=== PATIENT | female | born 1945 | race Caucasian/White ===

== ENCOUNTER 2022-10-09 13:23 | Emergency (ER) | payer MEDICARE, MEDICAID, SELFPAY ==
--- NOTE | ~2022-10-09 | XR_ITS ---
EXAMINATION: XR KNEE, RIGHT CLINICAL INFORMATION: Right knee pain COMPARISON: None available. TECHNIQUE: Four views of the right knee. FINDINGS: There is moderate suprapatellar joint effusion with mild loss of medial tricompartment joint space. There is minimal superior patellar spurring. No acute fracture, dislocation or loose body seen. The soft tissues are normal. XR/XR knee RT 4V IMPRESSION: Mild degenerative changes medial and patellofemoral compartment with moderate joint effusion. No visible acute fracture or dislocation seen.
--- NOTE | ~2022-10-09 | US_ITS ---
EXAMINATION: US VENOUS ULTRASOUND WITH DOPPLER LOWER EXTREMITY, RIGHT CLINICAL INFORMATION: Right calf pain COMPARISON: None available. TECHNIQUE: Ultrasound of the deep veins is performed from the hip to the calf with compression sonography and color and pulse Doppler assessment. Spectral analysis with color-flow imaging is performed. FINDINGS: There is normal venous compression and respiratory variation and augmented flow. The visualized common femoral vein, superficial femoral vein, profunda femoral vein, popliteal vein, and the trifurcation region shows no evidence of deep venous thrombosis. There is no significant popliteal fossa cyst. Small knee joint effusion. US/US venous duplex LE RT IMPRESSION: No DVT demonstrated in the right lower extremity.
--- NOTE | 2022-10-09 13:24 | ED.GENADULT ---
HPI - General Adult General Chief complaint: Extremity Injury, Lower Stated complaint: R knee swelling Time Seen by Provider: 10/09/22 16:41 History of Present Illness HPI narrative: patient complains of right knee pain and swelling which has been going on for close to a month making it painful especially in the morning , she has been walking with a limp, no injury no fever, she also complains of pain in back of the leg and the lower thigh and upper calf but denies any redness or injury, no fevers There is no chest pain no shortness of breath no pain with deep breath Related Data Previous Rx's Medication Instructions Recorded oxycodone 5 mg tablet 5 mg PO Q6H PRN pain #14 tabs 10/09/22 walker #1 ea 10/09/22 Allergies Allergy/AdvReac Type Severity Reaction Status Date / Time acetaminophen [Percocet] Allergy Unknown hives Verified 03/09/19 00:00 oxycodone [Percocet] Allergy Unknown hives Verified 03/09/19 00:00 No Known Allergies Allergy Unverified 01/27/20 15:18 [facility] Past Medical History Source: nursing notes reviewed Social History Social History Alcohol intake: never Physical Exam ED Vital Signs: Vital Signs - 24 hr 10/09/22 13:26 Temperature 98 F Pulse Rate 77 Respiratory Rate 19 Blood Pressure 186/74 H Pulse Oximetry 98 Oxygen Delivery Method Room Air BMI result Body Mass Index 28.6 General appearance is no acute distress no respiratory distress Head is normocephalic atraumatic Neck is supple Chest is clear to auscultation bilateral full symmetric equal breath sounds no pleuritic pain with deep breath Heart no murmur Abdomen soft nontender Extremities the right knee had tenderness and mild swelling as well as some tenderness of the calf posterior thigh and posterior knee, there was no redness no rash no warmth, there was no obvious effusion, the leg extends to 180 degrees and flexes close to 90, patient can bear weight and walks with a limp Other extremities normal Skin no rash Course Course Course Narrative: This is an RME: Additional HPI, ROS, PE not included below will be deferred to primary provider. This is a [id number]-female, with a past medical history of diabetes, fibromyalgia, hyperlipidemia, and asthma, presenting to the emergency department with complaints of right knee pain and swelling x 2 weeks. Patient was seen at [facility] where she was told she has arthritis and a wen's cyst. Has been taking ibuprofen without any relief. Does not have f/u with orthopedics, next PCP appt not until next week. No fevers or chills. No recent trauma, injury. Patient has limited range of motion no or edema Plan: x-ray showed of an effusion and arthritis, ultrasound was negative for DVT, exam the patient did not show any signs of septic arthritis in the joint, extends to 180 flexes close to 90 no redness no warmth no fever, and patient was discharged to follow with orthopedics for osteoarthritis Medications Administered Discontinued Medications Generic Name Dose Route Start Last Admin Trade Name Freq PRN Reason Stop Dose Admin Oxycodone HCl 5 mg 10/09/22 17:00 10/09/22 17:18 Oxycodone Hcl Immed Release 5 Mg Tablet PO 10/09/22 17:01 5 mg ONCE ONE Administration Discharge Plan Discharge Clinical Impression: Osteoarthritis of right knee Patient Disposition: Home, Self-Care Additional Instructions: x-ray showed arthritis in the joint and you may benefit from a steroid shot from the orthopedist so follow with orthopedist There is no sign of any infection Ultrasound did not show any blood clot Return any time if worse Prescriptions: New oxycodone 5 mg tablet 5 mg PO Q6H PRN (Reason: pain) Qty: 14 0RF Rx Instructions: Partial Fill upon patient request. (DME) joce Francis See Rx Instructions .Route Qty: 1 0RF Rx Instructions: As directed Referrals: Tremaine Rodriguez MD [Physician] - ( right knee osteoarthritis and effusion) Interventions: ED Discharge Assessment Last Done: 10/09/22 17:37 Discharge Date/Time: 10/09/22 17:42
[2022-10-09 13:26] VITALS: BP 186/74; PULSE 77; RESP 19; TEMP 36.6; O2SAT 98; BMI 28.6
--- OUTSIDE RECORDS SUMMARY | 2022-10-09 16:51 | XMS_ITS | Continuity of Care Document ---
Author Name Unknown Organization [facility] Address [address] [place] [address]- Care Team Providers Care Fuel Manager Name Role Phone Candis WALKER, Remi Sebastian Primary Care Physician [phone] [id number] Date(s): 09/26/20 - 12/09/[address] [address] Attending Physician: Jose Elias Rodriguez MD Admitting Physician: Jose Elias Rodriguez MD Allergies, Adverse Reactions, Alerts Substance Reaction Severity Status Zocor Active Lipitor Active gadolinium containing compounds Active Immunizations Not Given Vaccine Date Status Refusal Reason pneumococcal 13-valent vaccine 02/27/16 Not Given Patient Refuses Medications aspirin 81 mg oral tablet 1 tablet = 81 mg, By Mouth, Daily, # 30 tablet, 0 Refills, Maintenance, 02/27/16 11:50:51, Tablet Start Date: 02/27/16 Status: Ordered Citrucel 500 mg oral tablet 2 tablet = 1,000 mg, By Mouth, Daily, # 100 tablet, 1 Refills, Maintenance, 03/14/16 17:01:42 Start Date: 03/14/16 Status: Ordered Pepcid AC Maximum Strength 20 mg oral tablet 20 mg, 1, tablet, By Mouth, 2 times a day, # 60 tablet, Refills 0, Tot. Refills 0, Maintenance, 02/27/16 11:51:46, Print Requisition Start Date: 02/27/16 Stop Date: 03/28/16 Status: Ordered ProAir HFA 90 mcg/inh inhalation aerosol with adapter 180 mcg, 2, puffs, Inhalation, 4 times a day, # 2 each, Refills 0, Tot. Refills 0, Maintenance, 02/27/16 11:51:29, Inhaler, Print Requisition Start Date: 02/27/16 Status: Ordered Problem List Condition Effective Dates Status Health Status Inform ant Depression(Confirmed) Active Diabetes mellitus - adult onset(Confirmed) Active Diarrhea(Confirmed) Active Gastroenteritis(Confirmed) Active VV (varicose veins)(Confirmed) Active Social History Social History Type Response Smoking Status Never smoker entered on: 04/13/14 Sex
--- OUTSIDE RECORDS SUMMARY | 2022-10-09 16:51 | XMS_ITS | Continuity of Care Document ---
Author Name Unknown Organization [facility] Address [address] [place] [address]- Care Team Providers Care Devulcanizer Head Name Role Phone Candis WALKER, Remi Sebastian Primary Care Physician [phone] Encounter [facility] ACCT R [id number] Date(s): 12/13/20 - 01/12/21 [facility] [address] [place] [address]- Attending Physician: Ghazal Sexton Admitting Physician: Ghazal Sexton Referring Physician: AdmtrGhazal Allergies, Adverse Reactions, Alerts Substance Reaction Severity [...]
--- OUTSIDE RECORDS SUMMARY | 2022-10-09 16:51 | XMS_ITS | Continuity of Care Document ---
Author Name Unknown Organization [facility] [place] Address [address] [place] [address]- Care Team Providers Care Associate Team Physician Name Role Phone Candis WALKER, Remi Sebastian Primary Care Physician [phone] Encounter [facility] Date(s): 09/25/20 - 10/25/20 [facility] [place] [address] [place], [place] [address] Allergies, Adverse Reactions, Alerts Substance Reaction Severity [...]
--- OUTSIDE RECORDS SUMMARY | 2022-10-09 16:51 | XMS_ITS | Continuity of Care Document ---
Author Name Unknown Organization [facility] [place] Address [address] [place] [address]- Care Team Providers Care Glass Glazier Name Role Phone Remi Chirinos MD Primary Care Physician [phone] Encounter [facility] NBR [id number] Date(s): 09/25/20 - 10/25/20 [facility] [place] [address] [place], [place] [address] Attending Physician: Ghazal Sexton Admitting Physician: Ghazal Sexton Referring Physician: Ghazal Sexton Allergies, Adverse Reactions, Alerts Substance Reaction Severity [...]
--- OUTSIDE RECORDS SUMMARY | 2022-10-09 16:51 | XMS_ITS | Continuity of Care Document ---
Author Name Unknown Organization [facility] [place] Address [address] [place] [address]- Care Team Providers Care Rehabilitation Counselor Name Role Phone Remi Chirinos MD Primary Care Physician Encounter [email or web address] NBR [id number] Date(s): 05/25/20 - 09/13/20 [facility] [place] [address] [place], [place] [address] Attending Physician: Jose Elias Rodriguez MD Referring Physician: Remi Chirinos MD Allergies, Adverse Reactions, Alerts Substance Reaction [...]
--- OUTSIDE RECORDS SUMMARY | 2022-10-09 16:51 | XMS_ITS | Continuity of Care Document ---
Author Name Unknown Organization [facility] Address [address] [place] [address]- Care Team Providers Care Salesperson Household Appliances Name Role Phone Candis WALKER, Remi Sebastian Primary Care Physician [id number] Date(s): 12/31/21 - 01/30/22 [facility] [address] [place] [address] [place] Allergies, Adverse Reactions, Alerts Substance Reaction Severity Status Zocor Active Lipitor Active gadolinium containing compounds Active Immunizations Not Given Vaccine Date Status Refusal Reason pneumococcal 13-valent vaccine 02/27/16 Not Given Patient Refuses Medications Actos 15 mg oral tablet 1 tablet = 15 mg, By Mouth, Daily, 0 Refills, Maintenance, 09/25/20 13:20:00 EDT, Partial fill uponpatient request if the prescription is for a schedule II opioid drug. Start Date: 09/25/20 Status: Ordered aspirin 81 mg oral tablet 1 tablet = 81 mg, By Mouth, Daily, # 30 tablet, 0 Refills, Maintenance, 02/27/16 11:50:51, Tablet Start Date: 02/27/16 Status: Ordered bisacodyl 5 mg oral delayed release tablet 1 tablet = 5 mg, By Mouth, Daily, PRN for constipation, Take 2 tabs the evening before colonoscopy,# 12 tablet, 0 Refills, Maintenance, 01/07/22 17:04:00 EDT, EC Tablet, [facility]/pharmacy #[id number], Partial fill upon patient request if the prescription is for... Start Date: 01/07/22 Status: Ordered Citrucel 500 mg oral tablet 2 tablet = 1,000 mg, By Mouth, Daily, # 100 tablet, 1 Refills, Maintenance, 03/14/16 17:01:42 Start Date: 03/14/16 Status: Ordered GaviLyte-G oral powder for reconstitution 240 mL, By Mouth, Daily, # 480 mL, 0 Refills, Maintenance, 09/25/20 16:20:00 EDT, REC Powder, [facility], Partial fill upon patient request if the prescription is for a schedule II opioid drug., 240 mL By Mouth Daily Start Date: 09/25/20 Status: Ordered glipiZIDE 5 mg oral tablet 5 mg, 1, tablet, By Mouth, Daily, Refills 0, Maintenance, 09/25/20 13:20:00 EDT, Partial fill upon patient request if the prescription is for a schedule II opioid drug. Start Date: 09/25/20 Status: Ordered MiraLax oral powder for reconstitution = 17 Gm, By Mouth, 2 times a day, take twice daily for ONE WEEK before COLONOSCOPY, # 238 Gm, 0 Refills, Maintenance, 01/07/22 17:04:00 EDT, REC Powder, [facility]/pharmacy #[id number], Partial fill upon patient request if the prescription is for a schedule II opi... Start Date: 01/07/22 Status: Ordered NuLYTELY with Flavor Packs oral powder for reconstitution 240 mL, By Mouth, Every 10 minutes, # 4,000 mL, 0 Refills, Maintenance, 01/07/22 17:03:00 EDT, REC Powder, [facility]/pharmacy #[id number], Partial fill upon patient request if the prescription is for a schedule II opioid drug., 240 mL By Mouth Every 10 minutes Start Date: 01/07/22 Status: Ordered Pepcid AC Maximum Strength 20 mg oral tablet 20 mg, 1, tablet, By Mouth, 2 times a day, # 60 tablet, Refills 0, Tot. Refills 0, Maintenance, 02/27/16 11:51:46, Print Requisition Start Date: 02/27/16 Stop Date: 03/28/16 Status: Ordered Precose 100 mg oral tablet 1 tablet = 100 mg, By Mouth, 3 times a day, 0 Refills, Maintenance, 09/25/20 13:20:00 EDT, Partial fill upon patient request if the prescription is for a schedule II opioid drug. Start Date: 09/25/20 Status: Ordered ProAir HFA 90 mcg/inh inhalation [...] Status Never smoker entered on: 04/13/14 Sex Care Team Personnel Name: Candis WALKER, Remi Sebastian Address: [address] [place] [address] [facility] [address]
--- OUTSIDE RECORDS SUMMARY | 2022-10-09 16:51 | XMS_ITS | Continuity of Care Document ---
Author Name Unknown Organization [facility] Address [address] [place] [address]- Care Team Providers Care Dance Critic Name Role Phone Remi Chirinos MD Primary Care Physician [id number]20/[facility] [address] [place] [address]- Attending Physician: Laura Wylie MD Referring Physician: Remi Chirinos MD Allergies, [...]
--- OUTSIDE RECORDS SUMMARY | 2022-10-09 16:51 | XMS_ITS | Continuity of Care Document ---
Author Name Unknown Organization [facility] [place] Address [address] [place] [address]- Care Team Providers Care Payment Specialist Name Role Phone Candis WALKER, Remi Sebastian Primary Care Physician [phone] Encounter [facility] NBR [id number] Date(s): 06/01/20 - 09/29/20 [facility] [place] [address] [place], [place] [address] Attending Physician: Jose Elias Rodriguez MD Allergies, Adverse [...]
--- OUTSIDE RECORDS SUMMARY | 2022-10-09 16:51 | XMS_ITS | Continuity of Care Document ---
Author Name Unknown Organization [facility] Address [address] [place] [address]- Care Team Providers Care Furniture Stainer Name Role Phone Candis WALKER, Remi Sebastian Primary Care Physician [phone] Encounter [facility] Date(s): 08/14/21 - 09/13/21 [facility] [address] [place] [address] [place] Allergies, Adverse Reactions, Alerts Substance Reaction [...]
[2022-10-09] MEDS: oxyCODONE HCl Immed Release 5 MG TABLET PO (17:18)
[2022-10-09 17:35] VITALS: BP 177/88; PULSE 72; RESP 18; O2SAT 97
== END 2022-10-09 17:42 | disposition home or self-care (01) ==
PROVIDERS: Emergency Provider Emergency Medicine; PCP Internal Medicine
DX: M17.11 Unilateral primary osteoarthritis, right knee (principal); M79.604 Pain in right leg; E11.9 Type 2 diabetes mellitus without complications; E78.5 Hyperlipidemia, unspecified
CPT/HCPCS: 73564; 93971; 99284

== ENCOUNTER → 2022-10-21 11:51 | Outpatient (BNVA) | payer MEDICARE, MEDICAID, SELFPAY | PROVIDERS: PCP Internal Medicine; Visit Provider Orthopaedic Surgery | DX: M17.11 Unilateral primary osteoarthritis, right knee (principal); E11.9 Type 2 diabetes mellitus without complications | CPT/HCPCS: 20610; 99202; J1100 ==

== ENCOUNTER 2022-12-16 10:32 | Outpatient (AMB) | payer MEDICARE, MEDICAID, SELFPAY ==
--- NOTE | 2022-12-16 10:34 | A.OFFVIS_ITS ---
Intake Vital Signs 12/16/22 10:35 Height 5 ft 5 in Weight 175 lb BMI 29.1 Intake Visit Reasons: ov- Osteoarthritis of right knee Intake Note: Karla is a 77 year old female who presents today for a follow up of her right knee OA. Last Injection done 10/21/22. Patient reports that she founf mild relief with the injection but would like to repeat. Allergies acetaminophen [Percocet] Allergy (Unknown, Verified 10/21/22 11:56) hives oxycodone [Percocet] Allergy (Unknown, Verified 10/21/22 11:56) hives No Known Allergies Allergy (Unverified 10/21/22 11:56) HPI ov- Osteoarthritis of right knee HPI Details Karla is a 77 year old Diabetic woman who returns to discuss her right knee OA pain. She was last seen, and injected, on 10/21/22, with mild relief. She continues to have pain with daily activity, worse with walking or using stairs. She describes her pain as sharp in the medial aspect of her knee. She denies any prior treatment, and currently takes NSAIDs for pain relief. She has a Hx of Fibromyalgia and is a Diabetic.? [facility] Social History Alcohol intake: never Review of Systems Const All systems reviewed & are unremarkable except as noted in HPI and below Physical Exam Vital Signs: BMI result Body Mass Index 29.1 Const General: no acute distress and alert Orientation/consciousness: patient oriented x3 Neuro General: patient oriented x3 Extrem Other: Right Knee: TTP medial joint line No effusion 0-120 degrees ROM Stable to V/V stress Psych Appearance: grossly normal Affect: normal affect Attitude: cooperative Office Procedures Joint Injection/Drain Joint Injection/Drain Details: Injected 1 mL of Decadron and 3 mL 1% lidocaine and 3 mL of 0.25% Marcaine. Site was prepped using aseptic technique. Patient tolerated the procedure well. Primary Site: right knee Approach Used: anterolateral Coding 60303 - Large joint Procedure code (CPT) selection complete Results Reviewed Results Reviewed: 12/16/22 10:35 BUPivacaine MPF 0.25 % [Sensorcaine-MPF 0.25% 10 ML] 10 ml .ROUTE .STK-MED ONE Lidocaine HCl 2 % MPF [Xylocaine 2 % MPF] 5 ml .ROUTE .STK-MED ONE dexAMETHasone sod phosphate [Decadron] 4 mg .ROUTE .STK-MED ONE I personally reviewed relevant radiographs. Mild degenerative changes medial and patellofemoral compartment with moderate joint effusion. No visible acute fracture or dislocation seen. Assessment & Plan Assessment & Plan (1) Osteoarthritis of right knee: Code(s): M17.11 - Unilateral primary osteoarthritis, right knee Plan: This is a 77 year old woman with right knee OA. She has pain with daily activity, worse with prolonged ambulation, and she ambulates with antalgia. She feels limited in her ambulatory capacity and her ADLs. She denies any prior treatment and takes NSAIDs. She found mild relief from her injection on 10/21/22. I discussed her diagnosis and treatment options. I injected her right knee today, which she tolerated well. She can follow up prn. (2) Diabetes mellitus: Code(s): E11.9 - Type 2 diabetes mellitus without complications Plan: I discussed the hyperglycemic effects of steroid injections. Plan Scribed for Tremaine Rodriguez MD by Bravo Oh, medical management trainer, on 12/16/22 at 10:50 AM, EST. Coding Level of Care Code Est Pt Level 4 (07208) Diagnoses Osteoarthritis of right knee M17.11 Diabetes mellitus E11.9 CPT Codes Coding - 11240 Large joint: 12876 - Large joint ([id number])
[2022-12-16 10:35] VITALS: BMI 29.1
== END 2022-12-16 12:36 | disposition home or self-care (01) ==
PROVIDERS: PCP Internal Medicine; Visit Provider Orthopaedic Surgery
DX: M17.11 Unilateral primary osteoarthritis, right knee (principal)
CPT/HCPCS: 20610; 99214

== ENCOUNTER → 2022-12-16 10:32 | Outpatient (BNVA) | payer MEDICARE, MEDICAID, SELFPAY | PROVIDERS: PCP Internal Medicine; Visit Provider Orthopaedic Surgery | DX: M17.11 Unilateral primary osteoarthritis, right knee (principal); E11.9 Type 2 diabetes mellitus without complications | CPT/HCPCS: 20610; 99212; J1100 ==

== ENCOUNTER 2023-07-11 11:47 | Emergency (ER) | payer MEDICARE, MEDICAID, SELFPAY ==
--- NOTE | ~2023-07-11 | XR_ITS ---
EXAMINATION: XR CHEST CLINICAL INFORMATION: Shortness of breath COMPARISON: 06/26/2019 TECHNIQUE: 2 views of the chest were obtained. FINDINGS: No significant abnormality is noted involving the heart, lungs, mediastinum, bony thorax or soft tissues. XR/XR chest 2V IMPRESSION: Unremarkable examination.
[2023-07-11 12:07] VITALS: BP 167/68; PULSE 96; RESP 18; TEMP 36.5; O2SAT 95; BMI 28.7
--- NOTE | 2023-07-11 12:14 | ED_ITS ---
HPI - General Adult General Chief complaint: Upper Respiratory Symptoms Stated complaint: asthma Time Seen by Provider: 07/11/23 13:09 Source: patient Mode of arrival: ambulatory Limitations: no limitations History of Present Illness HPI narrative: Patient is a 78 year old female with a history of asthma, DM, and OA of both knees, presenting to the ED with a 3 month history of coughing, wheezing, and SOB. The symptoms have been progressively getting worse and have been causing pounding headaches, likely secondary to coughing, and that it has lead to difficulty sleeping. Patient endorses a history of asthma and reports being on a regimen to manage her symptoms, but her prescription was discontinued by her PCP sometime last year. Patient denies fever, chills, chest pain, and edematous changes in her lower extremities. Onset (ago): week(s) (3) Radiation: non-radiation Severity: mild Severity scale (1-10): 3 Pain Consistency: intermittent Relieving factors: none Exacerbating factors: none Associated symptoms: denies other symptoms, cough and shortness of breath Treatments prior to arrival: none Related Data Home Medications Medication Instructions Recorded Confirmed aspirin 81 mg tablet,delayed 81 mg PO DAILY 10/21/22 release (Adult Aspirin Regimen) cetirizine 10 mg tablet (Allergy 10 mg PO DAILY PRN 10/21/22 Relief (cetirizine)) dulaglutide 1.5 mg/0.5 mL 1.5 mg subcut QWEEK 10/21/22 subcutaneous pen injector (Trulicity) famotidine 20 mg tablet 20 mg PO DAILY 10/21/22 fluticasone 500 mcg-salmeterol 50 1 inh inhalation BID 10/21/22 mcg/dose blistr powdr for inhalation (Advair Diskus) glipizide 5 mg tablet 5 mg PO DAILY 10/21/22 montelukast 10 mg tablet 10 mg PO DAILY 10/21/22 rosuvastatin 10 mg tablet 10 mg PO DAILY 10/21/22 Previous Rx's Medication Instructions Recorded oxycodone 5 mg tablet 5 mg PO Q6H PRN pain #14 tabs 10/09/22 walker #1 ea 10/09/22 albuterol sulfate 90 mcg/actuation 1 inh inhalation QID PRN 07/11/23 aerosol inhaler bronchospasm #8.5 grams prednisone 20 mg tablet 20 mg PO DAILY 7 days #7 tabs 07/11/23 Allergies Allergy/AdvReac Type Severity Reaction Status Date / Time No Known Allergies Allergy Verified 07/11/23 12:15 Review of Systems Constitutional: Constitutional: Reports no additional constitutional complaints, Denies chills, Reports difficulty sleeping, Denies fever(s), Reports headache(s) and Denies night sweats Eyes: Eyes: Reports no additional eye complaints, Denies blurry vision, Denies change in vision, Denies diplopia, Denies eye discharge, Denies loss of vision and Denies eye pain ENT: Denies dizziness and Reports headache(s) Cardiovascular: Cardiovascular: Reports no additional cardiovascular complaints, Denies chest pain, Denies pedal edema, Denies leg edema, Denies lightheadedness, Denies Loss of Consciousness, Reports dyspnea and Reports dyspnea on exertion Respiratory: Respiratory: Reports cough, Reports dyspnea, Reports dyspnea on exertion and Reports wheezing Gastrointestinal: Gastrointestinal: Reports no additional gastrointestinal complaints, Denies abdominal pain, Denies melena, Denies hematochezia, Denies change in bowel habits and Denies change in stool character Genitourinary: Genitourinary: Denies hematuria, Denies urinary frequency, Denies dysuria, Denies urinary incontinence, Denies urinary hesitancy and Denies urinary urgency Musculoskeletal: Musculoskeletal: Reports no additional musculoskeletal complaints, Denies numbness and Denies tingling Neurologic: Denies dizziness, Reports headache(s), Denies loss of vision, Denies numbness and Denies tingling Psychiatric: Psychiatric: Reports no additional psychiatric complaints Endocrine: Endocrine: Reports no additional endocrine complaints Hematologic/Lymphatic: Hematologic/Lymphatic: Reports no additional hematologic/lymphatic complaints Allergic/Immunologic: Allergic/Immunologic: Reports no additional allergic/immunologic complaints and Reports wheezing PMFSH Past Medical History Attestation statement: The following information was validated with the patient. Source: old records reviewed and nursing notes reviewed Social History Social History Alcohol intake: never Smoked in Last 30 Days: No Use of substances other than those prescribed or required for medical reasons: No Advance Directives: No Advance Directives Information Provided: Yes Physical Exam ED Vital Signs: Vital Signs - 24 hr 07/11/23 12:07 07/11/23 13:12 07/11/23 13:38 Temperature 97.7 F 99.5 F Pulse Rate 96 88 Respiratory Rate 18 16 Blood Pressure 167/68 H 179/64 H Pulse Oximetry 95 98 98 Oxygen Delivery Method Room Air Room Air Room Air BMI result Body Mass Index 28.7 Const General: cooperative, alert, awake and anxious Nutritional Appearance: average body habitus Orientation/consciousness: patient oriented x3 Limitations: no limitations HENMT Head: Yes normal to inspection Ears: hearing grossly normal bilaterally General nose exam: Normal external nose present Face and sinus: Yes normal facial exam Mouth: Normal oral and palatal mucosa present Throat: Yes posterior oropharynx normal Eyes General: appearance normal, both eyes and all related structures Periorbital: periorbital findings normal Eyelids: Yes eyelids normal Conjunctivae: conjunctivae normal Pupils: Equal, round and reactive pupils present EOM: EOMs intact bilaterally Neck Neck: Yes normal visual inspection, Yes full ROM and Yes no lymphadenopathy Chest Chest palpation & inspection: normal inspection of the chest Resp Effort & Inspection: normal respiratory effort, audible wheezes and Actively coughing Auscultation: wheezes expiratory wheezes and upper bilaterally Cardio Jugular venous distension: no JVD Palpation: normal PMI Rate: regular rate Rhythm: regular rhythm GI Inspection: Yes normal to inspection Neuro General: patient oriented x3 Cranial nerves: Yes Equal, round and reactive pupils present Cognition (Neuro): normal cognition Motor exam (neuro): 5/5 motor strength present throughout Sensory Exam: Normal double simultaneous stimulation for sensation Coordination: [id number] test normal Extrem General: Yes normal to inspection, Yes full ROM and Yes capillary refill normal Psych Appearance: grossly normal Mental Status: mental status grossly normal Affect: normal affect Attitude: cooperative Thought process: Normal thought process present Thought content: Normal thought content present Insight: Good insight present (Psych) Course Course Course Narrative: RME- 78-year-old female presents for evaluation of cough for 3 weeks. She reports that her primary doctor stopped her abdomen medications because ?they think I have an allergy. ? She reports that she has not been her inhalers for at least 6 months. Plan for x-ray and viral swabs. She is well-appearing Medications Administered Discontinued Medications Generic Name Dose Route Start Last Admin Trade Name Freq PRN Reason Stop Dose Admin Methylprednisolone Sodium Succinate 60 mg 07/11/23 13:10 07/11/23 13:35 Methylprednisolone Sod Succ 125 Mg/2 Ml Vial IM 07/11/23 13:11 60 mg ONCE ONE Administration Medical Decision Making Medical Decision Making [facility] Narrative: Patient is a 78 year old assigned female at with a history of asthma and DM presenting to the emergency department today with a persistent cough. Patient's physical exam was as noted in the physical exam portion of this note. Patient's chest x-ray showed no acute process. Patient's COVID-19, influenza, and RSV tests were negative. I explained my physical exam findings as well as all test results to the patient. I answered all questions asked by the patient. Patient received IM Solu-medrol and a breathing treatment which she stated helped her symptoms significantly. I stressed the importance of the patient taking her medication as prescribed. I stressed the importance of the patient following up with her primary care provider. I stressed the importance of the patient returning to the emergency department immediately if her symptoms were to worsen or if she were to develop any dizziness, shortness of breath, difficulty breathing, chest pain, blurry vision, loss of vision, nausea, vomiting, abdominal pain, fever, chills, back pain, or any other complaints. Krystle garcia verbalized agreement and understanding with this treatment plan and discharge. Differential Diagnosis Differential Diagnoses: The differential diagnosis associated with the presentation includes Cough Persistent cough Viral illness Asthma Asthma exacerbation Admission/Observation Consideration of admission/observation: Escalation of care including admission/observation considered Patient would have been admitted to the hospital had her work up had any findings where hospital admission was appropriate and her clinical presentation warranted hospital admission. Lab Data [facility] Lab Attestation statement: I reviewed the patient's lab results. My interpretation of these results are in the [facility] Rationale portion of this note. Labs: Lab Results 07/11/23 Range/Units 12:17 Influenza Type A (PCR) NEGATIVE (Negative) Influenza Type B (PCR) NEGATIVE (Negative) RSV RNA Qual (PCR) NEGATIVE (Negative) SARS-CoV-2 RNA (RT-PCR) NEGATIVE (Negative) Independent Interpretation I performed an independent interpretation of an: Plain X-Ray Interpretation: My interpretation is in agreement with the radiologist's impression of this imaging study. EXAMINATION: XR CHEST CLINICAL INFORMATION: Shortness of breath COMPARISON: 06/26/2019 TECHNIQUE: 2 views of the chest were obtained. FINDINGS: No significant abnormality is noted involving the heart, lungs, mediastinum, bony thorax or soft tissues. XR/XR chest 2V IMPRESSION: Unremarkable examination. Dictated By: Val Stuart MD Signed By: Electronically signed by Val Stuart MD 07/11/23 7417 Radiology Impression Discussion of test interpretation with radiology: I have reviewed the radiologist's reading. Critical Care Time Critical Care Time Critical Care Time: Yes Total Critical Care Time: 45 Attestation: I spent 45 minutes of Critical Care Time with this patient. This does not include time spent on separately reported billable procedures. Discharge Plan Discharge Clinical Impression: Asthma Patient Disposition: Home, Self-Care Instructions: Asthma (DC) Additional Instructions: Follow up with your primary care provider. Return to the emergency department immediately if your symptoms worsen or if you develop any dizziness, shortness of breath, difficulty breathing, chest pain, blurry vision, loss of vision, nausea, vomiting, abdominal pain, fever, chills, back pain, or any other complaints. Prescriptions: New albuterol sulfate 90 mcg/actuation HFA aerosol inhaler 1 inh inhalation QID PRN (Reason: bronchospasm) Qty: 8.5 0RF prednisone 20 mg tablet 20 mg PO DAILY 7 Days Qty: 7 0RF No Action oxycodone 5 mg tablet 5 mg PO Q6H PRN (Reason: pain) Qty: 14 0RF Rx Instructions: Partial Fill upon patient request. (ROGER Francis See Rx Instructions .Route Qty: 1 0RF Rx Instructions: As directed fluticasone propion-salmeterol [Advair Diskus] 500-50 mcg/dose blister with device 1 inh inhalation BID aspirin [Adult Aspirin Regimen] 81 mg tablet,delayed release (DR/EC) 81 mg PO DAILY cetirizine [Allergy Relief (cetirizine)] 10 mg tablet 10 mg PO DAILY PRN famotidine 20 mg tablet 20 mg PO DAILY glipizide 5 mg tablet 5 mg PO DAILY montelukast 10 mg tablet 10 mg PO DAILY rosuvastatin 10 mg tablet 10 mg PO DAILY Trulicity 1.5 mg/0.5 mL pen injector 1.5 mg subcut QWEEK Referrals: [facility] [place] [facility] [place] [Provider Group] (Call to establish and follow up with a primary care provider. If you already have a primary care provider, please follow up with them.) [facility] [place] [facility] [place] [facility], [facility] [Provider Group] (Call to establish and follow up with a primary care provider. If you already have a primary care provider, please follow up with them.) [facility] [place] [facility] [place] [facility] [Provider Group] (Call to establish and follow up with a primary care provider. If you already have a primary care provider, please follow up with them.) Interventions: ED Discharge Assessment Last Done: 07/11/23 14:38 Discharge Date/Time: 07/11/23 14:38 Print Language: Croatian
[2023-07-11 13:01] LABS: Influenza A PCR NEGATIVE (Negative); Influenza B PCR NEGATIVE (Negative); Resp Syncy Virus RNA Qual PCR NEGATIVE (Negative); SARS COV2 PCR INHOUSE NEGATIVE (Negative)
[2023-07-11 13:12] VITALS: BP 179/64; PULSE 88; RESP 16; TEMP 37.5; O2SAT 98
[2023-07-11] MEDS: methylPREDNISolone Sod Succ 125 MG/2 ML VIAL 60 MG IM (13:35)
[2023-07-11 13:38] VITALS: O2SAT 98
== END 2023-07-11 14:38 | disposition home or self-care (01) ==
PROVIDERS: Physician Assistant; Emergency Provider Emergency Medicine Emergency Medical Services
DX: J45.909 Unspecified asthma, uncomplicated (principal); E11.9 Type 2 diabetes mellitus without complications; Z11.52 Encounter for screening for COVID-19; Z20.828 Contact with and (suspected) exposure to other viral communicable diseases
CPT/HCPCS: 0241U; 71046; 96372; 99284; J2930

== ENCOUNTER 2024-01-26 14:41 | Outpatient (REF) | payer MEDICARE, MEDICAID, SELFPAY ==
--- NOTE | 2024-01-26 15:45 | MHC.AU.HA1 ---
Hearing Aid Evaluation Date of Visit: 01/26/24 Historical Information: Description of Hearing: Within normal to 1kHz sloping to mild sensorineural hearing loss Ad, sloping to moderate sensorineural hearing loss As. Current personal amplification information, if applicable: none Summary: Karla is here to discuss hearing aids. Tested at [facility]. Reports bothersome tinnitus. Notes difficulty hearing in groups, and missing when people call to her. Discussed options. Recommended [facility]. Selected rechargeable. Has a smartphone but not tech savvy. Hearing Aid Prescription: Based on the individual?s shared listening needs, communication environments, dexterity, desire for connectivity, and personal preferences, the following prescription for amplification has been made: Right ear: Make, Model, Color: [employer] Intent 2 R chroma beige Battery Size: Rechargeable Wholesaler/Slim Tube: 2 85 Type of Earmold/Dome/CShell/SlimTip: 6mm open clinton Left ear: Make, Model, Color: [employer] Intent 2 R chroma beige Battery Size: Rechargeable Wholesaler/Slim Tube: 2/85 Type of Earmold/Dome/CShell/SlimTip: 6 mm open clinton Plan of Care: Patient wishes to purchase hearing aids as prescribed Action Taken/Action Needed: Hearing Instrument Fitting to be scheduled when materials arrive Comments: Medicaid active eliana Cochran. Primary Diagnosis: H90.3 Bilateral Sensorineural Hearing Loss Secondary Diagnosis: H93.13 Tinnitus, Bilateral Signature: Provider: Keith Ambriz, CCC-A
== END 2024-01-26 14:42 | disposition home or self-care (01) ==
LOC: HO.HAP 14:41
PROVIDERS: Visit Provider Otolaryngology
DX: Z46.1 Encounter for fitting and adjustment of hearing aid (principal); H90.3 Sensorineural hearing loss, bilateral; H93.13 Tinnitus, bilateral
CPT/HCPCS: 92591

== ENCOUNTER 2024-02-26 11:13 | Emergency (ER) | payer MEDICARE, MEDICAID, SELFPAY ==
--- NOTE | ~2024-02-26 | XR_ITS ---
EXAMINATION: XR CHEST CLINICAL INFORMATION: Cough. Asthma. COMPARISON: Chest x-ray July 11, 2023 TECHNIQUE: 2 views of the chest were obtained. FINDINGS: Cardiac silhouette is normal in size. The lungs are well aerated. There is no lobar consolidation. No pleural effusion or pneumothorax. Mild to moderate diffuse degenerative changes of the spine. XR/XR chest 2V IMPRESSION: No acute pulmonary pathology. Electronically signed by: Steven Terrell MD 02/26/2024 02:46 PM EDT
[2024-02-26 11:47] VITALS: BP 129/69; PULSE 93; RESP 20; TEMP 37; O2SAT 97; BMI 28.0
--- NOTE | 2024-02-26 11:50 | ED_ITS ---
HPI - Asthma General Chief Complaint: Upper Respiratory Symptoms Stated Complaint: atshma Time Seen by Provider: 02/26/24 15:11 Source: patient and counter clerk [employer] ([place] Citizen) Mode of arrival: ambulatory Limitations: language barrier ([place] Citizen speaking) History of Present Illness ED Provider: SUSU GARCIA PA-C HPI Narrative: 79 year old [place] Citizen-speaking female with pmhx significant for asthma, diabetes, osteoarthritis presents to the ED today for evaluation of worsening asthma x3 days. Admits to cough productive of white sputum. Endorses bilateral rib pain with coughing. No chest pain. Has been using her albuterol nebulizer at home without relief. She states that her Breo inhaler prescription is no longer being paid for by her insurance. Denies fever, chills, sore throat, hemoptysis, palpitations, leg pain/swelling. Denies known sick contacts. wanigan clerk utilized throughout visit to communicate with patient. Related Data Home Medications ?Medication ?Instructions ?Recorded ?Confirmed aspirin 81 mg tablet,delayed 81 mg PO DAILY 10/21/22 release (Adult Aspirin Regimen) cetirizine 10 mg tablet (Allergy 10 mg PO DAILY PRN 10/21/22 Relief (cetirizine)) dulaglutide 1.5 mg/0.5 mL 1.5 mg subcut QWEEK 10/21/22 subcutaneous pen injector (Trulicity) famotidine 20 mg tablet 20 mg PO DAILY 10/21/22 fluticasone 500 mcg-salmeterol 50 1 inh inhalation BID 10/21/22 mcg/dose blistr powdr for inhalation (Advair Diskus) glipizide 5 mg tablet 5 mg PO DAILY 10/21/22 montelukast 10 mg tablet 10 mg PO DAILY 10/21/22 rosuvastatin 10 mg tablet 10 mg PO DAILY 10/21/22 Previous Rx's ?Medication ?Instructions ?Recorded oxycodone 5 mg tablet 5 mg PO Q6H PRN pain #14 tabs 10/09/22 walker #1 ea 10/09/22 albuterol sulfate 90 mcg/actuation 1 inh inhalation QID PRN 07/11/23 aerosol inhaler bronchospasm #8.5 grams prednisone 20 mg tablet 20 mg PO DAILY 7 days #7 tabs 07/11/23 benzonatate 100 mg capsule 100 mg PO BID PRN cough #20 caps 02/26/24 prednisone 20 mg tablet 40 mg (2 x 20 mg) PO DAILY 5 days 02/26/24 #10 tabs Allergies Allergy/AdvReac Type Severity Reaction Status Date / Time No Known Allergies Allergy Verified 02/26/24 11:51 Review of Systems 2 Review of Systems: Constitutional: No fever, chills, fatigue, night sweats, weight changes ENT/Mouth: No ear pain, hearing loss, nasal congestion, sinus pain, rhinorrhea, sore throat Eyes: No eye pain, swelling, redness, vision changes, discharge Cardio: No chest pain, palpitations, CALIXTO, orthopnea, peripheral edema Pulm: No SOB, wheezing, dyspnea, hemoptysis, +productive cough GI: No nausea, vomiting, hematemesis, abdominal pain, diarrhea, constipation, hematochezia, melena : No irregular bleeding, dysuria, frequency, urgency, hesitancy, hematuria, flank pain, urinary flow changes, urinary incontinence or retention MSK: No back pain, neck pain, joint pain, myalgias Skin: No lesions, rashes Neuro: No weakness, numbness, paresthesias, LOC, dizziness, headache Psych: No anxiety/panic, depression, SI/HI, AH/VH All other systems reviewed and are negative. [facility] Past Medical History Attestation statement: The following information was validated with the patient. Source: old records reviewed and nursing notes reviewed Social History Social History Alcohol intake: never Advance Directives: No Advance Directives Information Provided: No Do you have a plan to hurt others: No Plan Physical Exam 2 Vital Signs: Vital Signs: Last Vital Signs Temp 97.0 F 02/26/24 17:37 Pulse 86 02/26/24 17:37 Resp 18 02/26/24 17:37 BP 158/69 H 02/26/24 17:37 Pulse Ox 95 02/26/24 17:37 O2 Del Method Room Air 02/26/24 17:37 BMI result Body Mass Index 28.0 Patient hypertensive. Not hypoxic. Not tachycardic. Afebrile. General: Well appearing, in no acute distress. Skin: Warm, dry, intact. No rashes or lesions. Head: Normocephalic, atraumatic. EENT: Hearing is intact b/l. Conjunctiva clear. Sclera is anicteric. PERRLA. Moist mucous membranes.? Neck: Supple without LAD. FROM. Trachea midline.? Cardiac: Chest wall symmetric. RRR. Lungs: Normal respiratory effort. No tripoding. Congested cough. Bilateral inspiratory and expiratory wheezing with scattered rhonchi. Back: No midline spinous or paraspinal tenderness. No step off deformity. Ext: Upper and lower extremities atraumatic, without tenderness, deformity, swelling or erythema. No peripheral edema. Neuro: AOx3. Normal speech. Ambulating with steady gait. Psych: Appropriate mood and affect. Responds appropriately to questions. Course Course Course Narrative: This is a Rapid Medical Examination (RME) performed by Marika Delgado PA-C in triage. Full HPI, ROS, assessment and treatment plan per primary provider in the Main ED. 79-year-old [place] Citizen-speaking female with a history of asthma, diabetes, osteoarthritis who presents to the ER for evaluation of 3 days of worsening asthma symptoms despite using her albuterol nebulizer at home. her Breo inhaler prescription is no longer being paid for. bringing up white phlegm after using nebs. no fevers. reports bilateral rib pain w/ coughing. no chest pain. In triage she is breathing comfortably, no distress. congested cough. bilateral inspiratory and expiratory wheezing with scattered rhonchi on exam. no hypoxia. Plan: CXR, viral swab, lab, ED bronch protocol Reevaluation(s) Reevaluation #1: 1634 -- CBC without leukocytosis or left shift. Mild normocytic anemia, H&H above transfusion threshold. Chemistry without acute electrolyte abnormality requiring intervention. EKG showing normal sinus rhythm with a rate of 71 beats per minute, QT 382, QTC 415, no acute ischemic changes or ST elevations. Troponin 5.9, will repeat for delta. She tested negative for COVID, flu, RSV. Chest x-ray does not demonstrate pneumonia or effusion. > patient receiving breathing treatment and IV Solu-Medrol. 1730 -- delta trop flat. Minimal expiratory wheezes noted after administration of breathing treatment and IV Solu-Medrol. IV magnesium ordered with improvement. Patient reports significant improvement in breathing. Lungs are now clear to auscultation bilaterally. Suspicion for acute asthma exacerbation. Will discharge her home with prednisone. Tessalon Perles provided for cough. Patient has remained stable throughout ED visit today. Discussed worrisome signs and symptoms and when to return to the ED. All questions answered at this time. Patient is agreeable with disposition and stable for discharge. Medications Administered Discontinued Medications Generic Name Dose Route Start Last Admin Trade Name Jayde PRN Reason Stop Dose Admin Albuterol Sulfate 5 mg/ 0 mg 02/26/24 15:35 02/26/24 15:38 Albuterol/Ipratropium 3 ml INHALE 02/26/24 15:36 1 each ONCE ONE Administration Magnesium Sulfate 2 gm in 50 mls @ 150 mls/hr 02/26/24 16:23 02/26/24 16:33 Magnesium Sulfate/H2o IV 02/26/24 16:42 150 mls/hr ONCE ONE Administration Methylprednisolone Sodium Succinate 125 mg 02/26/24 15:38 02/26/24 16:00 Methylprednisolone Sod Succ 125 Mg/2 Ml Vial IVPUSH 02/26/24 15:39 125 mg ONCE ONE Administration Medical Decision Making Medical Decision Making [facility] Narrative: 79 year old [place] Citizen-speaking female with pmhx significant for asthma, diabetes, osteoarthritis presents to the ED today for evaluation of worsening asthma x3 days. Afebrile, not hypoxic. Nontoxic-appearing and in no acute distress. Normal respiratory effort. No tripoding. Congested cough. Bilateral inspiratory and expiratory wheezing with scattered rhonchi. No peripheral edema. Differential diagnosis includes viral syndrome, upper respiratory infection, bronchitis, pneumonia, asthma exacerbation. Lower suspicion for arrhythmia, ACS, CHF. Plan for basic labs, viral serology, EKG, chest x-ray, ED bronch protocol, and re-evaluation. Differential Diagnosis Differential Diagnoses: The differential diagnosis associated with the presentation includes as above. Admission/Observation not indicated. Lab Data [facility] Lab Attestation statement: I reviewed the patient's lab results. as above. 02/26/24 12:06 02/26/24 12:06 Labs: Lab Results 02/26/24 02/26/24 Range/Units 12:06 15:55 WBC 8.5 (4.8-10.8) X10*3/uL RBC 3.66 L (4.20-5.50) X10*6/uL Hgb 11.3 L (12.0-16.0) g/dl Hct 33.7 L (37.0-47.0) % MCV 92.1 (80.0-98.0) fL MCH 30.9 (27.0-33.0) pg MCHC 33.5 (31.0-35.0) g/dl RDW 13.9 (11.0-16.0) % Plt Count 263 (160-400) X10*3/uL MPV 8.5 L (9.4-12.3) fL Immature Gran % (Auto) 0.2 (0.0-0.4) % Neut % (Auto) 55.6 (45-73) % Lymph % (Auto) 22.0 (20-40) % Weakley % (Auto) 8.0 (2-11) % Eos % (Auto) 13.7 H (0-4) % Baso % (Auto) 0.5 (0-2) % Lymph # (Auto) 1.9 (1.2-4.9) X10*3/uL Weakley # (Auto) 0.7 (0.1-1.2) X10*3/uL Eos # (Auto) 1.2 H (0.0-0.4) X10*3/uL Baso # (Auto) 0.0 (0.0-0.2) X10*3/uL Abs Immat Gran (auto) 0.02 (0.00-0.03) X10*3/uL Absolute Neuts (auto) 4.8 (2.0-8.3) x10*3/uL Absolute Nucleated RBC 0.000 (0.0-0.012) X10*3/uL Nucleated RBC % (auto) 0.0 (0.0-0.2) /100WBC Sodium 140 (135-145) mmol/L Potassium 4.5 (3.3-5.1) mmol/L Chloride 107 (96-108) mmol/L Carbon Dioxide 27 (22-29) mmol/L Anion Gap 11 L (12-20) BUN 22 H (9-16) mg/dL Creatinine 0.77 (0.5-1.4) mg/dL Estim Creat Clear Calc 61.5 Estimated GFR > 60 Random Glucose 196 H (60-115) mg/dL Calcium 9.7 (8.4-10.2) mg/dL Magnesium 2.1 (1.6-2.6) mg/dL Total Bilirubin 0.3 (0.0-1.0) mg/dL Direct Bilirubin 0.1 (0.0-0.5) mg/dL AST 40 H (5-31) U/L ALT 54 H (0-31) U/L Alkaline Phosphatase 104 (39-117) U/L Troponin I High Sens 5.9 5.7 (<3.5-17.0) ng/L Total Protein 6.9 (6.5-8.0) g/dL Albumin 4.1 (3.5-5.0) g/dL Influenza Type A (PCR) NEGATIVE (Negative) Influenza Type B (PCR) NEGATIVE (Negative) RSV RNA Qual (PCR) NEGATIVE (Negative) SARS-CoV-2 RNA (RT-PCR) NEGATIVE (Negative) Independent Interpretation I performed an independent interpretation of an: Plain X-Ray Interpretation: Chest x-ray without infiltrate or consolidation, agree with radiologist's interpretation. Radiology Impression Discussion of test interpretation with radiology: I have reviewed the radiologist's reading. Radiologist Impression: EXAMINATION: XR CHEST CLINICAL INFORMATION: Cough. Asthma. COMPARISON: Chest x-ray July 11, 2023 TECHNIQUE: 2 views of the chest were obtained. FINDINGS: Cardiac silhouette is normal in size. The lungs are well aerated. There is no lobar consolidation. No pleural effusion or pneumothorax. Mild to moderate diffuse degenerative changes of the spine. XR/XR chest 2V IMPRESSION: No acute pulmonary pathology. Electronically signed by: Steven Terrell MD 02/26/2024 02:46 PM EDT Independent Historian Clinical information obtained from an independent historian. History obtained from or confirmed by: Other (son, daughter) External Record Review External record reviewed: Inpatient record Prescription Management I considered prescription management with: Other (Prednisone, Tessalon Perles) Chronic Conditions Patient?s care impacted by: Other (asthma) Social Determinants Patient?s care significantly limited by Social Determinants of Health including: Other Social Determinant of Health Critical Care Time Critical Care Time Critical Care Time: No Discharge Plan Discharge Clinical Impression: Asthma exacerbation Patient Disposition: Home, Self-Care Instructions: Asthma (ED), Wheezing (ED) Additional Instructions: You were evaluated in the ED today for asthma exacerbation. Your blood work is reassuring. You tested negative for COVID, flu, RSV. Your chest x-ray does not demonstrate pneumonia. Your symptoms improved with breathing treatments today. Prednisone as a steroid that has been sent to your pharmacy to help with your breathing. Take this over the next 5 days starting tomorrow as you already received a dose in the ED today. Alton Hilliard have been sent to your pharmacy for you to take as needed for cough. Continue using your albuterol inhaler at home as needed for shortness of breath or wheezing. If you find yourself using this more often without improvement, please return to the ED as this warrants further treatment. Please follow up with PCP as needed. Return with new or worsening symptoms. In the case of an emergency call 911. Prescriptions: New prednisone 20 mg tablet 40 mg PO DAILY 5 Days Qty: 10 0RF benzonatate 100 mg capsule 100 mg PO BID PRN (Reason: cough) Qty: 20 0RF No Action oxycodone 5 mg tablet 5 mg PO Q6H PRN (Reason: pain) Qty: 14 0RF Rx Instructions: Partial Fill upon patient request. (KYLEE) joce Francis See Rx Instructions .Route Qty: 1 0RF Rx Instructions: As directed albuterol sulfate 90 mcg/actuation HFA aerosol inhaler 1 inh inhalation QID PRN (Reason: bronchospasm) Qty: 8.5 0RF prednisone 20 mg tablet 20 mg PO DAILY 7 Days Qty: 7 0RF fluticasone propion-salmeterol [Advair Diskus] 500-50 mcg/dose blister with device 1 inh inhalation BID aspirin [Adult Aspirin Regimen] 81 mg tablet,delayed release (DR/EC) 81 mg PO DAILY cetirizine [Allergy Relief (cetirizine)] 10 mg tablet 10 mg PO DAILY PRN famotidine 20 mg tablet 20 mg PO DAILY glipizide 5 mg tablet 5 mg PO DAILY montelukast 10 mg tablet 10 mg PO DAILY rosuvastatin 10 mg tablet 10 mg PO DAILY Trulicity 1.5 mg/0.5 mL pen injector 1.5 mg subcut QWEEK Interventions: ED Discharge Assessment Last Done: 02/26/24 17:37 Discharge Date/Time: 02/26/24 17:38 Print Language: [place] Citizen
--- NOTE | 2024-02-26 11:52 | ECG_ITS ---
Test Reason : SOB Blood Pressure : / mmHG Vent. Rate : 071 BPM Atrial Rate : 071 BPM P-R Int : 156 ms QRS Dur : 088 ms QT Int : 382 ms P-R-T Axes : 069 -02 030 degrees QTc Int : 415 ms Normal sinus rhythm Normal ECG When compared with ECG of 01-SEP-2017 09:34, No significant change was found Referred By: Aimee Delgado Electronically Signed By:MARCE GARCIA
[2024-02-26 12:11] LABS: MANUAL DIFF FLAG NO
[2024-02-26 12:12] LABS: Basophils Percent Auto 0.5 % (0-2); Eosinophils Absolute Auto 1.2 X10*3/uL (0.0-0.4); Eosinophils Percent Auto 13.7 % (0-4); Hematocrit 33.7 % (37.0-47.0); Hemoglobin 11.3 g/dl (12.0-16.0); Imm Gran Abs Auto 0.02 X10*3/uL (0.00-0.03); Imm Gran Pct Auto 0.2 % (0.0-0.4); Lymphocytes Absolute Auto 1.9 X10*3/uL (1.2-4.9); Mean Corpuscular HGB Conc 33.5 g/dl (31.0-35.0); Mean Corpuscular Hemoglobin 30.9 pg (27.0-33.0); Mean Corpuscular Volume 92.1 fL (80.0-98.0); Mean Platelet Volume 8.5 fL (9.4-12.3); Monocytes Absolute Auto 0.7 X10*3/uL (0.1-1.2); Neutrophils Absolute Auto 4.8 x10*3/uL (2.0-8.3); Neutrophils Percent Auto 55.6 % (45-73); Platelet Count 263 X10*3/uL (160-400); Red Blood Count 3.66 X10*6/uL (4.20-5.50); Red Cell Distribution Width 13.9 % (11.0-16.0); White Blood Count 8.5 X10*3/uL (4.8-10.8)
[2024-02-26 12:27] LABS: Alanine Aminotransferase 54 U/L (0-31); Albumin Level 4.1 g/dL (3.5-5.0); Alkaline Phosphatase 104 U/L (39-117); Anion Gap 11 (12-20); Aspartate Amino Transferase 40 U/L (5-31); Bilirubin Direct 0.1 mg/dL (0.0-0.5); Bilirubin Total 0.3 mg/dL (0.0-1.0); Blood Urea Nitrogen 22 mg/dL (9-16); Calcium 9.7 mg/dL (8.4-10.2); Carbon Dioxide 27 mmol/L (22-29); Chloride 107 mmol/L (96-108); Creatinine Clr Calc Pharmacy 61.5; Estimated Glomerular Filt Rate > 60; Glucose Random 196 mg/dL (60-115); Magnesium 2.1 mg/dL (1.6-2.6); Potassium 4.5 mmol/L (3.3-5.1); Sodium 140 mmol/L (135-145); Total Protein 6.9 g/dL (6.5-8.0)
[2024-02-26 12:34] LABS: Troponin-I High Sensitivity 5.9 ng/L (<3.5-17.0)
[2024-02-26 12:49] LABS: Influenza A PCR NEGATIVE (Negative); Influenza B PCR NEGATIVE (Negative); Resp Syncy Virus RNA Qual PCR NEGATIVE (Negative); SARS COV2 PCR INHOUSE NEGATIVE (Negative)
[2024-02-26 15:38] VITALS: PULSE 69; RESP 22; O2SAT 96
[2024-02-26] MEDS: Albuterol Sulfate 5 MG, Albuterol/Iprat 2.5/0.5MG 3 ML 3 ML INHALE (15:38)
[2024-02-26] MEDS: methylPREDNISolone Sod Succ 125 MG/2 ML VIAL IVPUSH (16:00)
[2024-02-26 16:22] LABS: Troponin-I High Sensitivity 5.7 ng/L (<3.5-17.0)
[2024-02-26] MEDS: Magnesium Sulfate/H2O 2 GM/50 ML PIGGYBACK IV (16:33)
[2024-02-26 17:37] VITALS: BP 158/69; PULSE 86; RESP 18; TEMP 36.1; O2SAT 95
== END 2024-02-26 17:38 | disposition home or self-care (01) ==
PROVIDERS: Physician Assistant; Physician Assistant Medical; Emergency Provider Emergency Medicine; PCP Registered Nurse
DX: J45.901 Unspecified asthma with (acute) exacerbation (principal); R06.02 Shortness of breath; R05.9 Cough, unspecified; Z03.818 Encounter for observation for suspected exposure to other biological agents ruled out; Z79.899 Other long term (current) drug therapy
CPT/HCPCS: 0241U; 36415; 71046; 80048; 80076; 83735; 84484; 85025; 93005; 94640; 96374; 96375; 99284; J2919; J3475

== ENCOUNTER → 2024-02-26 11:52 | Outpatient (BNV) | payer MEDICARE, MEDICAID, SELFPAY | PROVIDERS: PCP Registered Nurse; Visit Provider Internal Medicine | DX: R06.02 Shortness of breath (principal) | CPT/HCPCS: 93010 ==

== ENCOUNTER 2024-03-03 15:25 | Outpatient (AMB) | payer MEDICARE, MEDICAID, SELFPAY ==
--- NOTE | 2024-03-03 15:29 | MHC.OFFVIS ---
Vital Signs 03/03/24 15:30 Height 5 ft 5 in Weight 168 lb BMI 28.0 BP 126/78 Blood Pressure Location Lt brachial Pulse 96 Pulse Source Pulse Oximeter Pulse Oximetry (%) 97 Oxygen Delivery Method Room Air Intake Visit Reasons: knee pain Allergies No Known Allergies Allergy (Verified 03/03/24 15:33) Medication List - Last Reconciled 03/03/24 by Dilia Coy MD albuterol sulfate 90 mcg/actuation 1 inh inhalation QID PRN albuterol sulfate mg inhalation Q4H PRN aspirin (Adult Aspirin Regimen) 81 mg PO DAILY benzonatate 100 mg PO BID PRN cetirizine (Allergy Relief (cetirizine)) 10 mg PO DAILY PRN dulaglutide (Trulicity) 1.5 mg subcut QWEEK famotidine 20 mg PO DAILY fluticasone propion-salmeterol 500-50 mcg/dose (Advair Diskus) 1 inh inhalation BID fluticasone propionate 50 mcg/actuation sprays intranasal glipizide 5 mg PO DAILY metformin ER 500 mg PO DAILY montelukast 10 mg PO BEDTIME montelukast 10 mg PO DAILY oxycodone 5 mg PO Q6H PRN prednisone 40 mg (2 x 20 mg) PO DAILY 5 days prednisone 20 mg PO DAILY 7 days rosuvastatin 10 mg PO DAILY walker As directed HPI Comments Details: Patient is a 79-year-old female with diabetes and hyperlipidemia who presents for evaluation of knee pain. Note from [facility] reviewed Bilateral knee x-ray showed mild interval progression of moderate degenerative changes of the medial femoral tibial compartment left greater than right Given Durolane injections in both knees 12/31/2023 Last A1c 09/24/2023 9 Patient has been having a longstanding history of knee pain. Initially started on the right knee and now involves both knees. She has been seen and evaluated by Orthopedics and told that she has osteoarthritis based on imaging. No other joints really bother her at this time it was mainly her knees. [facility] Medical History (Updated 03/03/24 @ 16:06 by Dilia Coy MD) Osteoarthritis of knees, bilateral Social History Alcohol intake: never Review of Systems Const Details: Review of Systems Constitutional: Denies fever, chills, weight loss ENT: Denies vision changes, eye pain or eye redness, dental caries, dry mouth GI: Denies nausea, vomiting, diarrhea, abdominal pain, change in BM Pulm: Denies SOB, CALIXTO, hemoptysis, wheezing Cards: Denies chest pain, palpitations Skin: Denies Raynaud's, rash, nail changes, photosensitivity, GRINDING MACH[employer] PORTABLE: Denies headaches, weakness, paresthesias, recurrent falls MSK: as per HPI All other systems reviewed and are unremarkable except noted above Physical Exam Physical Examination Patient well appearing and in no apparent painful distress Constitutional Mucous membranes pink and moist patient alert and cooperative HEENT Conjunctiva and sclera clear. ?Pupils equal round and reactive to light. ?No lymphadenopathy. ?Normal dentition. Respiratory System Normal respiratory effort and able to speak in complete sentences. ?Clear to auscultation bilaterally. ?No crackles, rales, rhonchi, wheezes heard. Cardiac System Regular rate and rhythm. ?S1 and S2 heard no murmurs. ?Radial pulses intact bilaterally MSK Trace edema noted to bilateral knees. Crepitations noted to bilateral knees. Full range of motion. Hands with Heberden's nodes but no tenderness to palpation or evidence of synovitis. Results Reviewed Results Reviewed: X-ray reports reviewed in scanned notes. Assessment & Plan Assessment & Plan (1) Osteoarthritis of knees, bilateral: Code(s): M17.0 - Bilateral primary osteoarthritis of knee Category: Medical Qualifiers: Osteoarthritis type: primary Qualified Code(s): M17.0 - Bilateral primary osteoarthritis of knee Plan: #Bilateral Knee OA Patient with bilateral knee OA who presents 3 months after receiving Durolane Today she has some effusion. States tates that the Durolane and did not help. Ideally I would like to wait 6 months before introducing another needle into her knees. I discussed this with the patient and her daughter at bedside. In the meantime we will do topical diclofenac 3 times a day. And gabapentin 100 mg at night. Patient will return again in 3 months and at that time we will make a decision about the efficacy of this management. If no improvement we will perform arthrocentesis at that time. Plan I spent 45 minutes reviewing the record and labs, seeing the patient, discussing the treatment plan and documenting in the medical record ? For next visit: Evaluate for arthrocentesis Medications: New gabapentin 100 mg PO BEDTIME 90 days 90 caps 1RF M17.0 - Bilateral primary osteoarthritis of knee diclofenac sodium 1% (Arthritis Pain (diclofenac)) Apply to bilateral knees three times a day 4 grams topical QID 100 grams 2RF Changed From glipizide 5 mg PO DAILY To glipizide 5 mg PO BID Discontinued oxycodone Partial Fill upon patient request. Discontinued Reason: Patient no longer taking 5 mg PO Q6H PRN 14 tabs 0RF pain benzonatate Discontinued Reason: Patient no longer taking 100 mg PO BID PRN 20 caps 0RF cough prednisone Discontinued Reason: Patient Completed Course 40 mg (2 x 20 mg) PO DAILY 5 days 10 tabs 0RF prednisone Discontinued Reason: Patient Completed Course 20 mg PO DAILY 7 days 7 tabs 0RF Coding Level of Care Code New Pt Level 4 (89504) Diagnoses Primary osteoarthritis of both knees M17.0 Osteoarthritis type: primary
[2024-03-03 15:30] VITALS: BP 126/78; PULSE 96; O2SAT 97; BMI 28.0
--- NOTE | 2024-03-03 15:30 | MHC.OFFVIS ---
Vital Signs 03/03/24 15:30 Height 5 ft 5 in Weight 168 lb BMI 28.0 BP 126/78 Blood Pressure Location Lt brachial Pulse 96 Pulse Source Pulse Oximeter Pulse Oximetry (%) 97 Oxygen Delivery Method Room Air Intake Visit Reasons: knee pain Intake Note: Patient presents as a new patient, externally referred by PCP for bilateral knee pain. Patient had a duralane injection 3 months ago, she has tried Ibuprofen, Tylenol, naproxen. Accompanied by: Grand Child Allergies No Known Allergies Allergy (Verified 03/03/24 15:33) Medication List - Last Reconciled 03/03/24 by Dilia Coy MD albuterol sulfate 90 mcg/actuation 1 inh inhalation QID PRN albuterol sulfate mg inhalation Q4H PRN aspirin (Adult Aspirin Regimen) 81 mg PO DAILY benzonatate 100 mg PO BID PRN cetirizine (Allergy Relief (cetirizine)) 10 mg PO DAILY PRN dulaglutide (Trulicity) 1.5 mg subcut QWEEK famotidine 20 mg PO DAILY fluticasone propion-salmeterol 500-50 mcg/dose (Advair Diskus) 1 inh inhalation BID fluticasone propionate 50 mcg/actuation sprays intranasal glipizide 5 mg PO DAILY metformin ER 500 mg PO DAILY montelukast 10 mg PO BEDTIME montelukast 10 mg PO DAILY oxycodone 5 mg PO Q6H PRN prednisone 40 mg (2 x 20 mg) PO DAILY 5 days prednisone 20 mg PO DAILY 7 days rosuvastatin 10 mg PO DAILY walker As directed HPI Comments Details: Patient is a 79-year-old female with diabetes and hyperlipidemia who presents for evaluation of knee pain. Note from [facility] [place] [facility] reviewed Bilateral knee x-ray showed mild interval progression of moderate degenerative changes of the medial femoral tibial compartment left greater than right Given Durolane injections in both knees 12/31/2023 Last A1c 09/24/2023 9 Patient has been having a longstanding history of knee pain. Initially started on the right knee and now involves both knees. She has been seen and evaluated by Orthopedics and told that she has osteoarthritis based on imaging. No other joints really bother her at this time it was mainly her knees. [facility] Medical History (Updated 03/03/24 @ 16:06 by Dilia Coy MD) Osteoarthritis of knees, bilateral Social History Alcohol intake: never Review of Systems Const Details: Review of Systems Constitutional: Denies fever, chills, weight loss ENT: Denies vision changes, eye pain or eye redness, dental caries, dry mouth GI: Denies nausea, vomiting, diarrhea, abdominal pain, change in BM Pulm: Denies SOB, [place], hemoptysis, wheezing Cards: Denies chest pain, palpitations Skin: Denies Raynaud's, rash, nail changes, photosensitivity, WATCH COMMANDER: Denies headaches, weakness, paresthesias, recurrent falls MSK: as per HPI All other systems reviewed and are unremarkable except noted above Physical Exam Vital Signs: Last Vital Signs Pulse 96 03/03/24 15:30 BP 126/78 03/03/24 15:30 Pulse Ox 97 03/03/24 15:30 Oxygen Delivery Method Room Air 03/03/24 15:30 BMI result Body Mass Index 28.0 Physical Examination Patient well appearing and in no apparent painful distress Constitutional Mucous membranes pink and moist patient alert and cooperative HEENT Conjunctiva and sclera clear. ?Pupils equal round and reactive to light. ?No lymphadenopathy. ?Normal dentition. Respiratory System Normal respiratory effort and able to speak in complete sentences. ?Clear to auscultation bilaterally. ?No crackles, rales, rhonchi, wheezes heard. Cardiac System Regular rate and rhythm. ?S1 and S2 heard no murmurs. ?Radial pulses intact bilaterally MSK Trace edema noted to bilateral knees. Crepitations noted to bilateral knees. Full range of motion. Hands with Heberden's nodes but no tenderness to palpation or evidence of synovitis. Results Reviewed Results Reviewed: X-ray reports reviewed in scanned notes. Assessment & Plan Assessment & Plan (1) Osteoarthritis of knees, bilateral: Code(s): M17.0 - Bilateral primary osteoarthritis of knee Category: Medical Qualifiers: Osteoarthritis type: primary Qualified Code(s): M17.0 - Bilateral primary osteoarthritis of knee Plan: #Bilateral Knee OA Patient with bilateral knee OA who presents 3 months after receiving Durolane Today she has some effusion. States tates that the Durolane and did not help. Ideally I would like to wait 6 months before introducing another needle into her knees. I discussed this with the patient and her daughter at bedside. In the meantime we will do topical diclofenac 3 times a day. And gabapentin 100 mg at night. Patient will return again in 3 months and at that time we will make a decision about the efficacy of this management. If no improvement we will perform arthrocentesis at that time. Plan I spent 45 minutes reviewing the record and labs, seeing the patient, discussing the treatment plan and documenting in the medical record ? For next visit: Evaluate for arthrocentesis Medications: New gabapentin 100 mg PO BEDTIME 90 caps 1RF 90 days M17.0 - Bilateral primary osteoarthritis of knee diclofenac sodium 1% (Arthritis Pain (diclofenac)) Apply to bilateral knees three times a day 4 grams topical QID 100 grams 2RF Changed From glipizide 5 mg PO DAILY To glipizide 5 mg PO BID Discontinued oxycodone Partial Fill upon patient request. Discontinued Reason: Patient no longer taking 5 mg PO Q6H PRN 14 tabs 0RF pain benzonatate Discontinued Reason: Patient no longer taking 100 mg PO BID PRN 20 caps 0RF cough prednisone Discontinued Reason: Patient Completed Course 40 mg (2 x 20 mg) PO DAILY 5 days 10 tabs 0RF prednisone Discontinued Reason: Patient Completed Course 20 mg PO DAILY 7 days 7 tabs 0RF Coding Level of Care Code New Pt Level 4 (07035) Diagnoses Primary osteoarthritis of both knees M17.0 Osteoarthritis type: primary
== END 2024-03-03 16:03 | disposition home or self-care (01) ==
PROVIDERS: Visit Provider Student in an Organized Health Care Education/Training Program
DX: M17.0 Bilateral primary osteoarthritis of knee (principal)
CPT/HCPCS: 99204; 99499

== ENCOUNTER → 2024-03-03 15:25 | Outpatient (BNVA) | payer MEDICARE, MEDICAID, SELFPAY | PROVIDERS: Visit Provider Student in an Organized Health Care Education/Training Program | DX: M17.0 Bilateral primary osteoarthritis of knee (principal) | CPT/HCPCS: 99202 ==

== ENCOUNTER 2024-06-03 12:22 | Outpatient (AMB) | payer MEDICARE, MEDICAID, SELFPAY ==
--- NOTE | 2024-06-03 12:32 | MHC.OFFVIS ---
Vital Signs 06/03/24 12:38 Height 5 ft 5 in Weight 170 lb 10.205 oz BMI 28.4 BP 132/64 Blood Pressure Location Rt brachial Position Sitting Pulse 76 Pulse Source Pulse Oximeter Pulse Oximetry (%) 98 Oxygen Delivery Method Room Air Intake Visit Reasons: follow up Intake Note: patient presents for follow up. Grab Operator Required: Yes Grab Operator Language: Pattern Layout Worker Services: Grab Operator Offered & Declined Grab Operator Name: Tatiana Mendez Information Interpreted: non-clinical & clinical [employer] Curtain Machine Tender: [employer] Curtain Machine Tender Present (Tatiana Mendez) Accompanied by: Daughter Allergies No Known Allergies Allergy (Verified 06/03/24 12:37) HPI Comments Details: Patient is a 79-year-old female with diabetes and hyperlipidemia who presents for follow up of knee pain. Interval History: Patient last seen 03/04 with me. At that time patient was being evaluated for bilateral knee pain. She had previously followed up with ortho at that time and had received Durolane injection. I discussed with her that no further interventions could be done at that time since the injection had just been given. I prescribed gabapentin 100 mg to see if this may help with her pain. Today she notes that gabapentin did not help in fact it made her dizzy She is now 3 months post Durolane injection and she has not had any improvement in her pain Rheumatologic History: Patient currently being treated for knee osteoarthritis - tried Durolane no improvement - tried gabapentin 100 mg t.i.d. no improvement Initial history: Note from [facility] group [place] [facility] reviewed Bilateral knee x-ray showed mild interval progression of moderate degenerative changes of the medial femoral tibial compartment left greater than right Given Durolane injections in both knees 12/31/2023 Last A1c 09/24/2023 9 Patient has been having a longstanding history of knee pain. Initially started on the right knee and now involves both knees. She has been seen and evaluated by Orthopedics and told that she has osteoarthritis based on imaging. No other joints really bother her at this time it was mainly her knees. Current Rheumatology Medication(s): Gabapentin 100 mg t.i.d. daily [facility] Medical History (Updated 03/03/24 @ 16:06 by Dilia Coy MD) Osteoarthritis of knees, bilateral Social History Alcohol intake: never Physical Exam Physical Examination Patient well appearing and in no apparent painful distress Constitutional Mucous membranes pink and moist patient alert and cooperative HEENT Conjunctiva and sclera clear. ?Pupils equal round and reactive to light. ?No lymphadenopathy. ?Normal dentition. Respiratory System Normal respiratory effort and able to speak in complete sentences. ?Clear to auscultation bilaterally. ?No crackles, rales, rhonchi, wheezes heard. Cardiac System Regular rate and rhythm. ?S1 and S2 heard no murmurs. ?Radial pulses intact bilaterally MSK Trace edema noted to bilateral knees. Crepitations noted to bilateral knees. Full range of motion. Hands with Heberden's nodes but no tenderness to palpation or evidence of synovitis. Office Procedures AMB Joint Injection/Aspiration Joint Injection/Aspiration Details: Procedure was explained to the patient and consent was obtained. ? The area of interest was identified and confirmed with patient. ?This was subsequently cleaned with chlorhexidine x3. ? The area was then anesthetized using ethyl chloride spray. 40 mg Kenalog with 1 cc 1% lidocaine was injected without issue. ?Minimal to no bleeding. ?Patient tolerated procedure. Primary Site: right knee Prep: site was prepped using aseptic technique and ethochloride spray was applied Injected: 40 mg of, Kenalog, with 1 mL of and 1% plain lidocaine Approach Used: anterior Procedure: The patient tolerated the procedure well Coding 85769 - Large joint Procedure code (CPT) selection complete AMB Joint Injection/Aspiration Joint Injection/Aspiration Details: Procedure was explained to the patient and consent was obtained. ? The area of interest was identified and confirmed with patient. ?This was subsequently cleaned with chlorhexidine x3. ? The area was then anesthetized using ethyl chloride spray. 40 mg Kenalog with 1 cc 1% lidocaine was injected without issue. ?Minimal to no bleeding. ?Patient tolerated procedure. Primary Site: left knee Prep: site was prepped using aseptic technique and ethochloride spray was applied Injected: 40 mg of, Kenalog, with 1 mL of and 1% plain lidocaine Approach Used: anterior Procedure: The patient tolerated the procedure well Coding 32036 - Large joint Procedure code (CPT) selection complete Office Meds lidocaine (PF) 10 mg/mL (1 %) injection solution Performing Provider: Dilia Coy MD Performing Location: [facility] [place] Rheumatology Administered by: Dilia Coy MD on 06/03/24 14:27 Dose Route Admin Location Dispensed Lot Number Expiration Date [facility] [employer] 10 mg Infiltration Right knee 2 mL [id number] 08/10/26 90501-584-01 [employer] Kenalog 40 mg/mL suspension for injection Performing Provider: Dilia Coy MD Performing Location: [facility] [place] Rheumatology Administered by: Dilia Coy MD on 06/03/24 14:27 Dose Route Admin Location Dispensed Lot Number Expiration Date [facility] [employer] 40 mg intra-articular 1 mL [id number] 11/09/26 [address]-8 [employer] lidocaine (PF) 10 mg/mL (1 %) injection solution Performing Provider: Dilia Coy MD Performing Location: [facility] [place] Rheumatology Administered by: Dilia Coy MD on 06/03/24 14:27 Dose Route Admin Location Dispensed Lot Number Expiration Date [facility] [employer] 10 mg Infiltration 2 mL [id number] 08/10/26 68852-609-36 [employer] Kenalog 40 mg/mL suspension for injection Performing Provider: Dilia Coy MD Performing Location: [facility] [place] Rheumatology Administered by: Dilia Coy MD on 06/03/24 14:27 Dose Route Admin Location Dispensed Lot Number Expiration Date [facility] [employer] 40 mg intra-articular 1 mL [id number] 11/09/25 [address]-3 [employer] Results Reviewed Results Reviewed: XR Right Knee 10/09/22 FINDINGS: There is moderate suprapatellar joint effusion with mild loss of medial tricompartment joint space. There is minimal superior patellar spurring. No acute fracture, dislocation or loose body seen. The soft tissues are normal Assessment & Plan Assessment & Plan (1) Osteoarthritis of knees, bilateral: Code(s): M17.0 - Bilateral primary osteoarthritis of knee Category: Medical Qualifiers: Osteoarthritis type: primary Qualified Code(s): M17.0 - Bilateral primary osteoarthritis of knee Plan: #Bilateral Knee OA Patient with bilateral knee OA. Today now 6 months after Durolane with no improvement Status post steroid injection today Plan - stop gabapentin - s/p bilateral steroid injection today - RTC 6 months Plan I spent 20 minutes reviewing the record and labs, seeing the patient, discussing the treatment plan and documenting in the medical record ? Orders: Orders AMB Joint Injection/Aspiration Today M17.0 - Bilateral primary osteoarthritis of knee AMB Joint Injection/Aspiration Today M17.0 - Bilateral primary osteoarthritis of knee Medications: New Kenalog (triamcinolone acetonide) 40 mg intra-articular ONCE 1 mL 0RF NS M17.0 - Bilateral primary osteoarthritis of knee lidocaine (PF) 10 mg Infiltration ONCE 2 mL 0RF M17.0 - Bilateral primary osteoarthritis of knee lidocaine (PF) 10 mg Infiltration ONCE 2 mL 0RF M17.0 - Bilateral primary osteoarthritis of knee Kenalog (triamcinolone acetonide) 40 mg intra-articular ONCE 1 mL 0RF NS M17.0 - Bilateral primary osteoarthritis of knee Coding Level of Care Code Est Pt Level 3 (18643) Diagnoses Primary osteoarthritis of both knees M17.0 Osteoarthritis type: primary CPT Codes Coding - 78895 Large joint: 08537 - Large joint ([id number]) Coding - 66890 Large joint: 68543 - Large joint ([id number])
[2024-06-03 12:38] VITALS: BP 132/64; PULSE 76; O2SAT 98; BMI 28.4
== END 2024-06-03 13:09 | disposition home or self-care (01) ==
PROVIDERS: Visit Provider Student in an Organized Health Care Education/Training Program
DX: M17.0 Bilateral primary osteoarthritis of knee (principal)
CPT/HCPCS: 20610; 99214

== ENCOUNTER → 2024-06-03 12:22 | Outpatient (BNVA) | payer MEDICARE, MEDICAID, SELFPAY | PROVIDERS: Visit Provider Student in an Organized Health Care Education/Training Program | DX: M17.0 Bilateral primary osteoarthritis of knee (principal) | CPT/HCPCS: 20610; 99212; J2003; J3300 ==

== ENCOUNTER 2024-11-30 10:40 | Outpatient (AMB) | payer MEDICARE, MEDICAID, SELFPAY ==
--- NOTE | 2024-11-30 10:45 | MHC.OFFVIS ---
Vital Signs 11/30/24 10:50 Height 5 ft 5 in Weight 170 lb 6.677 oz BMI 28.4 BP 102/60 Blood Pressure Location Lt brachial Position Sitting Pulse 79 Pulse Source Pulse Oximeter Pulse Oximetry (%) 98 Oxygen Delivery Method Room Air Intake Visit Reasons: follow up Intake Note: Patient presents for Osteoarthritis follow up. Allergies No Known Allergies Allergy (Verified 11/30/24 10:49) Medication List - Last Reconciled 11/30/24 by Dilia Coy MD albuterol sulfate 90 mcg/actuation 1 inh inhalation QID PRN albuterol sulfate mg inhalation Q4H PRN aspirin (Adult Aspirin Regimen) 81 mg PO DAILY beclomethasone dipropionate 80 mcg/actuation (Qvar RediHaler) inhalation cetirizine (Allergy Relief (cetirizine)) 10 mg PO DAILY PRN diclofenac sodium 1% 4 grams topical TID-QID famotidine 20 mg PO DAILY fluticasone propion-salmeterol 500-50 mcg/dose (Advair Diskus) 1 inh inhalation BID fluticasone propionate 50 mcg/actuation sprays intranasal gabapentin 100 mg PO BEDTIME 90 days glipizide 5 mg PO BID montelukast 10 mg PO BEDTIME rosuvastatin 10 mg PO DAILY walker As directed HPI Comments Details: Patient is a 79-year-old female with diabetes and hyperlipidemia who presents for follow up of knee OA Interval History: Patient last seen 06/03/24 - Did not feel gabapentin helped and made her dizzy - Now effect 3 months post Durolane - Received steroid injection in bilateral knees Today, - [place] better for about 2 months after the injection - Tried PT in the past but knee swollen after 2 sessions and so did not come back Rheumatologic History: Patient currently being treated for knee osteoarthritis - tried Durolane no improvement - tried gabapentin 100 mg t.i.d. no improvement - steroid injection: 05/2024 Initial history: Note from [facility] [place] reviewed Bilateral knee x-ray showed mild interval progression of moderate degenerative changes of the medial femoral tibial compartment left greater than right Given Durolane injections in both knees 12/31/2023 Last A1c 09/24/2023 9 Patient has been having a longstanding history of knee pain. Initially started on the right knee and now involves both knees. She has been seen and evaluated by Orthopedics and told that she has osteoarthritis based on imaging. No other joints really bother her at this time it was mainly her knees. Current Rheumatology Medication(s): Gabapentin 100mg nightly [facility] Medical History (Updated 03/03/24 @ 16:06 by Dilia Coy MD) Osteoarthritis of knees, bilateral Social History Household Members: None Housing: House Alcohol intake: never Patient Tobacco Use Status: Never used Tobacco Review of Systems Const Details: Review of Systems Constitutional: Denies fever, chills, weight loss ENT: Denies vision changes, eye pain or eye redness, dental caries, dry mouth GI: Denies nausea, vomiting, diarrhea, abdominal pain, change in BM Pulm: Denies SOB, [place], hemoptysis, wheezing Cards: Denies chest pain, palpitations Skin: Denies Raynaud's, rash, nail changes, photosensitivity, [employer] OPER[employer]: Denies headaches, weakness, paresthesias, recurrent falls MSK: as per HPI All other systems reviewed and are unremarkable except noted above Physical Exam Exam Exam: Vital signs reviewed Physical Examination CONSTITUITIONAL Patient alert and cooperative. Well appearing and in no apparent painful distress MSK Hands Right Hand: Able to make a fist. No swelling or tenderness to palpation of these joints. Left Hand: Able to make a fist. No swelling or tenderness to palpation of these joints. Herbedens nodes noted bilaterally Wrists Right Wrist: Full ROM. 70 degrees of wrist flexion, 80 degrees of wrist extension. No swelling or TTP Left Wrist: Full ROM. 70 degrees of wrist flexion, 80 degrees of wrist extension. No swelling or TTP Elbows Right Elbow: Full ROM. No swelling or TTP. No TTP of the medial and lateral epicondyles Left Elbow: Full ROM. No swelling or TTP. No TTP of the medial and lateral epicondyles Shoulders Right shoulder: Full ROM. No swelling noted. No TTP of the AC joint, subacromial bursa or posterior shoulder Left shoulder: Full ROM. No swelling noted. No TTP of the AC joint, subacromial bursa or posterior shoulder Knees Right knee: Full ROM. No swelling noted. TTP of the knee joint lie or pes anserine bursa Left knee: Full ROM. No swelling noted. No TTP of the knee joint lie or pes anserine bursa. Crepitations felt bilaterally Ankles Right ankle: Good ankle dorsiflexion and plantar flexion. No swelling. No TTP of the ankle joint Left ankle: Good ankle dorsiflexion and plantar flexion. No swelling. No TTP of the ankle joint Feet Right foot: Negative squeeze test Left foot: Negative squeeze test Tender points? No tenderness to palpation of the bilateral trapezius, supraspinatus, anterior costochondral junctions, bilateral suboccipital muscle insertions Vital Signs: Last Vital Signs BP 102/60 11/30/24 10:50 BMI result Body Mass Index 28.4 Office Procedures AMB Joint Injection/Aspiration Joint Injection/Aspiration Details: Procedure was explained to the patient and informed consent was obtained. ? Risks associated with the procedure were discussed with the patient including but not limited to bleeding, infection, drug reactions and reactions to the topical anesthetic. Patient made aware of signs to look out for infectious complications. The area of interest was identified and confirmed with patient. ?This was subsequently cleaned with chlorhexidine x3. ? The area was then anesthetized using ethyl chloride spray. 40 mg Kenalog with 1 cc 1% lidocaine was injected without issue. ?Minimal to no bleeding. ?Patient tolerated procedure. Primary Site: right knee Prep: site was prepped using aseptic technique and ethochloride spray was applied Injected: 40 mg of, Kenalog, with 1 mL of and 1% plain lidocaine Approach Used: anterior Procedure: The patient tolerated the procedure well Coding 16128 - Large joint Procedure code (CPT) selection complete AMB Joint Injection/Aspiration Joint Injection/Aspiration Details: Procedure was explained to the patient and informed consent was obtained. ? Risks associated with the procedure were discussed with the patient including but not limited to bleeding, infection, drug reactions and reactions to the topical anesthetic. Patient made aware of signs to look out for infectious complications. The area of interest was identified and confirmed with patient. ?This was subsequently cleaned with chlorhexidine x3. ? The area was then anesthetized using ethyl chloride spray. 40 mg Kenalog with 1 cc 1% lidocaine was injected without issue. ?Minimal to no bleeding. ?Patient tolerated procedure. Primary Site: left knee Prep: site was prepped using aseptic technique and ethochloride spray was applied Injected: 40 mg of, Kenalog, with 1 mL of and 1% plain lidocaine Approach Used: anterior Procedure: The patient tolerated the procedure well Coding 81787 - Large joint Procedure code (CPT) selection complete Office Meds lidocaine (PF) 10 mg/mL (1 %) injection solution Performing Provider: Dilia Coy MD Performing Location[place] [facility] Administered by: Dilia Coy MD on 11/30/24 11:21 Dose Route Admin Location Dispensed Lot Number Expiration Date [employer] 1 mL Infiltration right knee 2 mL [id number] 07/10/26 69648-946-70 [employer] Total Dispensed Waste 2 mL 50 % Kenalog 40 mg/mL suspension for injection Performing Provider: Dilia Coy MD Performing [place] [facility] Administered by: Dilia Coy MD on 11/30/24 11:21 Dose Route Admin Location Dispensed Lot Number Expiration Date [facility] [employer] 40 mg intra-articular right knee 1 mL [id number] 11/09/25 [address]-4 [employer] Total Dispensed Waste 1 mL 0 % lidocaine (PF) 10 mg/mL (1 %) injection solution Performing Provider: Dilia Coy MD Performing Location: [facility] Administered by: Dilia Coy MD on 11/30/24 11:21 Dose Route Admin Location Dispensed Lot Number Expiration Date [employer] 1 mL Infiltration left knee 2 mL [id number] 07/10/26 37677-919-57 [employer] Total Dispensed Waste 2 mL 50 % Kenalog 40 mg/mL suspension for injection Performing Provider: Dilia Coy MD Performing Location: [facility] Administered by: Dilia Coy MD on 11/30/24 11:21 Dose Route Admin Location Dispensed Lot Number Expiration Date [facility] [employer] 40 mg intra-articular left knee 1 mL [id number] 11/09/25 [address]-9 [employer] Total Dispensed Waste 1 mL 0 % Results Reviewed Results Reviewed: XR Right Knee 10/09/22 FINDINGS: There is moderate suprapatellar joint effusion with mild loss of medial tricompartment joint space. There is minimal superior patellar spurring. No acute fracture, dislocation or loose body seen. The soft tissues are normal Assessment & Plan Assessment & Plan (1) Osteoarthritis of knees, bilateral: Code(s): M17.0 - Bilateral primary osteoarthritis of knee Category: Medical Qualifiers: Osteoarthritis type: primary Qualified Code(s): M17.0 - Bilateral primary osteoarthritis of knee Plan: #Bilateral Knee OA Patient is a 79-year-old female with bilateral knee OA here today for follow up. Had some improvement after her steroid injection 6 months ago. However the injection effects wear off about 2-3 months. Discussed with patient that after we give her the injection today we will send her to PT. She could not tolerate PT in the past because of reactive swelling but I think having the steroids on board we will help with that. Status post steroid injection today Plan - s/p bilateral steroid injection today - PT referral - RTC 4 months Plan I spent 20 minutes reviewing the record and labs, taking a history, examining the patient, discussing the treatment plan, ordering diagnostic work up and documenting in the medical record Orders: Orders PT Evaluation and Treatment Today M17.0 - Bilateral primary osteoarthritis of knee AMB Joint Injection/Aspiration Today M17.0 - Bilateral primary osteoarthritis of knee AMB Joint Injection/Aspiration Today M17.0 - Bilateral primary osteoarthritis of knee Medications: Discontinued gabapentin Discontinued Reason: Duplicate 100 mg PO BEDTIME 90 days 90 caps 1RF M17.0 - Bilateral primary osteoarthritis of knee Coding Level of Care Code Est Pt Level 3 (16396) Diagnoses Primary osteoarthritis of both knees M17.0 Osteoarthritis type: primary CPT Codes Coding - 93099 Large joint: 54625 - Large joint ([id number]) Coding - 11010 Large joint: 32215 - Large joint ([id number])
[2024-11-30 10:50] VITALS: BP 102/60; PULSE 79; O2SAT 98; BMI 28.4
--- OUTSIDE RECORDS SUMMARY | 2024-11-30 11:51 | XMS_ITS | Data Portability ---
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 Chronic postnasal drip and bilateral tinnitus. 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 Suggest a course of doxycycline and follow-up imaging. Prior CT was done at [place] and her MRI at [facility] Not available 12/05/2023 14:36:29 12/18/2023 12/18/2023 Recommendations: Follow up with referring provider. Amplification, pending medical clearance. [email or web address] Not available 12/18/2023 14:16:07 Plan of Treatment Reminders Order Date Submit Date Provider Last Modified By Organization Details Last Modified Time Details Appointments None recorded. Lab None recorded. Referral None recorded. Procedures None recorded. Surgeries None recorded. Imaging CT, maxillofaci al, w/o contrast - Prior CT was done at [place] and her MRI at [facility] 2023 024 lindy s32 [facility], [address] [facility], [address], [place], [address], 15:37:29 Medication Orders doxycycline hyclate 100 mg tablet 2023 024 [facility], [address] [place], [place], [phone], 4 14:44:42 Patient TargetsNo targets recorded. Patient InstructionsNo instructions recorded. Reason for Referral None Reported. Results Created Date Observation Date Name Description Value Unit Range Abnormal Flag Note LastModifiedBy Organization Detail LastModifiedTime 12/19/19 audio gram No observ ation record ed. BARCODE Not Available 2023 10:13:52 01/01/2005/24/2020 imagi ng/di agnos tic resul t No observ ation record ed. [email or web address] Not Available 03:50:37 01/01/2008/02/2020 imagi ng/di agnos tic resul t No observ ation record ed. [email or web address] Not Available 03:51:09 Result Notes None recorded. Problems Name Problem SNOMED Code Status Onset Date Resolution Date Notes Provider Name and Address Organization Details Recorded Time Type 2 diabetes mellitus without complicat ion 285781558 Active 2020 Type 2 diabetes mellitus without complicat ions; Note: Date Diagnosed : 07/21/2020 12:12 PM (E11.9) Not Available [facility] 4 02:48:50 Uncomplic ated moderate persisten t asthma 629447563 Active 2020 Moderate persisten t asthma, uncomplic ated; Note: Date Diagnosed : 07/21/2020 12:12 PM (J45.40) Not Available [facility] 4 02:48:50 Bleeding from nose 488166989 Active 2020 Epistaxis ; Note: Date Diagnosed : 07/21/2020 12:12 PM (R04.0) Not Available [facility] 4 02:48:53 Chronic sphenoida l sinusitis 34711530 Active 2020 Chronic sphenoida l sinusitis ; Note: Date Diagnosed : 07/21/2020 12:12 PM (J32.3) Not Available [facility] 4 02:48:55 Chronic sinusitis 63108369 Active 2020 Other chronic sinusitis ; Note: Date Diagnosed : 07/21/2020 12:12 PM (J32.8) Not Available [facility] 4 02:48:53 Bilateral tinnitus 67137537032 02 Active 2023 OSMANI RICO MD [address] [facility] [address], [place], [address] , [facility] - [facility] 4 14:35:03 Sensorine ural hearing loss of bilateral ears 705878101 Active 2023 ALINA LOWE MA, [facility] 100 [facility] 100, [facility] [place], [address] , [facility] - [facility] 4 14:14:48 Problem Notes None recorded. Procedures Surgical History Date Name Laterality Status Provider Name and Address Organization Details Recorded Time 12/18/2023 Comp Audio with Tymps - 01482 & 91664 completed ALINA LOWE MA, [facility] [address] [facility],[place] [address], [place], [address], [facility] - [facility] [place] 12/18/2023 14:14:39 Imaging Results None recorded. Procedure Notes None recorded. Medical Equipment None Reported. Medications Name Sig Start Date Stop Date Status Note LastModified by Organization Details LastModified Time pioglitazo ne 15 mg tablet active Medicatio n ID: [id number] Br and Name: pioglitaz one Send Method: E-Prescri bed Subs Allowed: subs OK Medica tionGener icName: pioglitaz one Not Available Not Available Not Available albuterol sulfate 2.5 mg/3 mL (0.083 %) solution for nebulizati on USE 1 AMPULE USING A NEBULIZER EVERY 4 HOURS NEEDED FOR COUGH, WHEEZING, OR SHORTNESS OF BREATH active Not Available Not Available No t Available cetirizine 10 mg tablet TAKE 1 TABLET BY MOUTH EVERY DAY active Not Available Not Available No t Available ibuprofen 800 mg tablet active Medicatio n ID: [id number] Br and Name: ibuprofen Send Method: E-Prescri bed Subs Allowed: subs OK Medica tionGener icName: ibuprofen Not Available Not Available Not Available prednisone 20 mg tablet TAKE 1 TABLET BY MOUTH EVERY DAY FOR 7 DAYS active Not Available Not Available No t Available aspirin 81 mg tablet,del ayed release active Medicatio n ID: [id number] Br and Name: aspirin S end Method: E-Prescri bed Subs Allowed: subs OK Specia l Instructi on: TAKE 1 TABLET BY MOUTH ONCE DAILY Med icationGe nericName : aspirin Not Available Not Available Not Available glimepirid e 2 mg tablet active Medicatio n ID: [id number] Br and Name: glimepiri de Send Method: E-Prescri bed Subs Allowed: subs OK Medica tionGener icName: glimepiri de Not Available Not Available Not Available pantoprazo le 20 mg tablet,del ayed release active Medicatio n ID: [id number] Br and Name: pantopraz ole Send Method: E-Prescri bed Subs Allowed: subs OK Medica tionGener icName: pantopraz ole Not Available Not Available Not Available famotidine 20 mg tablet TAKE 1 TABLET BY MOUTH TWICE DAILY active Not Available Not Available No t Available acarbose 100 mg tablet active Medicatio n ID: [id number] Br and Name: acarbose Send Method: E-Prescri bed Subs Allowed: subs OK Medica tionGener icName: acarbose Not Available Not Available Not Available ibuprofen 400 mg tablet active Medicatio n ID: [id number] Br and Name: ibuprofen Send Method: E-Prescri bed Subs Allowed: subs OK Medica tionGener icName: ibuprofen Not Available Not Available Not Available Advair Diskus 500 mcg-50 mcg/dose powder for inhalation active Medicatio n ID: [id number] Br and Name: Advair Diskus Se nd Method: E-Prescri bed Subs Allowed: subs OK Medica tionGener icName: Advair Diskus Not Available Not Available Not Available montelukas t 10 mg tablet TAKE 1 TABLET BY MOUTH EVERY DAY AT BEDTIME active Not Available Not Available No t Available polyethyle ne glycol 3350 17 gram/dose oral powder active Medicatio n ID: [id number] Br and Name: polyethyl greta glycol 3350 Send Method: E-Prescri bed Subs Allowed: subs OK Specia l Instructi on: TAKE 17 GM MIXED IN 8 OUNCES OF WATER ONCE DAILY Med icationGe nericName : polyethyl greta glycol 3350 Not Available Not Available Not Available albuterol sulfate HFA 90 mcg/actuat ion aerosol inhaler INHALE 2 PUFFS BY MOUTH EVERY 4 HOURS NEEDED FOR WHEEZING OR SHORTNESS OF BREATH OR FOR COUGH active Not Available Not Available No t Available fluticason e propionate 50 mcg/actuat ion nasal spray,susp ension INSTILL 2 SPRAYS IN EACH NOSTRIL ONCE DAILY active Not Available Not Available No t Available metformin ER 500 mg tablet,ext ended release 24 hr TAKE 1 TABLET BY MOUTH EVERY DAY IN THE MORNING WITH BREAKFAST active Not Available Not Available No t Available doxycyclin e hyclate 100 mg tablet TAKE 1 TABLET BY MOUTH TWICE DAILY FOR 20 DAYS active Not Available Not Available No t Available glipizide 5 mg tablet TAKE 1 TABLET BY MOUTH TWICE DAILY BEFORE BREAKFAST AND BEFORE SUPPER active Not Available Not Available No t Available naproxen 500 mg tablet TAKE 1 TABLET BY MOUTH EVERY TWELVE HOURS WITH A MEAL NEEDED FOR PAIN active Not Available Not Available No t Available rosuvastat in 5 mg tablet active Medicatio n ID: [id number] Br and Name: rosuvasta tin Send Method: E-Prescri bed Subs Allowed: subs OK Medica tionGener icName: rosuvasta tin Not Available Not Available Not Available rosuvastat in 10 mg tablet TAKE 1 TABLET BY MOUTH DAILY IN THE EVENING active Not Available Not Available No t Available Spiriva with HandiHaler 18 mcg and inhalation capsules USE 1 CAPSULE FOR INHALATIO N ONCE A DAY DO NOT SWALLOW CAPSULE active Not Available Not Available No t Available FreeStyle Lite Strips USE DIRECTED TO TEST BLOOD SUGAR TWICE DAILY active Not Available Not Available No t Available FreeStyle [place] Lite kit USE DIRECTED TO TEST BLOOD SUGAR EVERY DAY active Not Available Not Available No t Available cholecalci ferol (vitamin D3) 50 mcg (2,000 unit) capsule active Medicatio n ID: [id number] Br and Name: cholecalc iferol (vitamin D3) Send Method: E-Prescri bed Subs Allowed: subs OK Specia l Instructi on: TAKE 1 CAPSULE BY MOUTH EVERY DAY Medic ationGene ricName: cholecalc iferol (vitamin D3) Not Available Not Available Not Available Breo Ellipta 100 mcg-25 mcg/dose powder for inhalation INHALE 1 PUFF BY MOUTH EVERY DAY AT THE SAME TIME active Not Available Not Available No t Available Anoro Ellipta 62.5 mcg-25 mcg/actuat ion powder for inhalation active Not Available Not Available N ot Available Trulicity 1.5 mg/0.5 mL subcutaneo us pen injector INJECT ONE PEN (=1.5MG) SUBCUTANE OUSLY ONCE A WEEK DIRECTED active Not Available Not Available No t Available Incruse Ellipta 62.5 mcg/actuat ion powder for inhalation active Medicatio n ID: [id number] Br and Name: Incruse Ellipta S end Method: E-Prescri bed Subs Allowed: subs OK Medica tionGener icName: Incruse Ellipta Not Available Not Available Not Available Vitals Date Recorded Body height Body mass index (BMI) Body weight Provider Name and Address Organization Details Last Updated DateTime 12/05/2023 165.1 cm 28.6 kg/m2 25639.89 g Judd Martinez MA - [facility] 12/05/2023 13:56:06 Social History None recorded. Functional Status None recorded. Mental Status None recorded. Family History Nothing Reported. Medical History Condition Response Nasal or Sinus Problems Y Gynecological HistoryNo gynecological history recorded. Obstetrics History GPAL:G 0 P 0 0 0 0 Past Encounters Encounter ID Performer Location Encounter Start Date Encounter Closed Date Diagnosis/Indication Diagnosis SNOMED-CT Code Diagnosis ICD10 Code Diagnosis Note [id number] OSMANI RICO MD [facility] [address] [address] 12/05/2023 13:51:22 12/05/2023 14:40:23 Chronic sphenoidal sinusitis 56066298 J32.3 take probiotics with the abx Bilateral tinnitus 88803 28475 102 H93.13 arrange for audio Chronic sinusitis 556798 00 J32.8 [id number] ALINA LOWE MA, CCC-A [facility] [address] [address] 12/18/2023 13:24:49 12/18/2023 14:24:24 Sensorineural hearing loss of bilateral ears 158452588 H90.3 Audiologic al evaluation results:Ri ght ear:Mild SNHL with excellent word recognitio n.Left ear:Mild-m oderate SNHL with excellent word recognitio n. Tympanomet ry:Right Ear:Type ALeft Ear:Type A Health Concerns Section Related Observation LastModified by Organization Detai ls LastModified Time None Recorded Concern Status LastModified by Organization Details LastModified Time None Recorded Advance Directives Directive None Recorded Payers Insurance Date Sequence Insurance Name Policy Number Policy Mi Covered Member ID Mi Member ID Guarantor Name 12/15/2023 2 MEDICAID-[place]: [facility] Karla Alexander [id number] Karla Alexander 12/15/2023 1 [place]IC[place] [employer] Karla Alexander [id number] Karla Alexander Notes Date Note Type Note Provider Name and Address Organization Details Recorded Time 12/05/2023 text/html Patient last see n in 2020. Seen with her daughter for complaints of sinus drip and pressure in her forehead. No pain behind her eyes. She also notes ringing in the ears left greater than right for at least 5 years. Previously diagnosed with sphenoid sinusitis. Decided not to come back to the office because she was anxious about the recommendation for surgical intervention. She feels things are about the same and denies any significant progression in her symptoms. She does note that the postnasal drip can contribute to her asthma symptoms. Denies chest pain, shortness of breath diarrhea or constipation. She does have diabetes. last visit : Patient denies any headache, facial pain or retro orbital discomfort. Previous CT scan showed complete opacification of the right sphenoid sinus with sclerosisand cortical thickening. 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 MRI scan did notshow any brain or meninges in the sinus. OSMANI SHERIDAN MD [address] [place] [address], [phone], [facility] - [facility] 12/05/2023 14:39:04 OBGyn Episode No OBEpisode recorded.
--- OUTSIDE RECORDS SUMMARY | 2024-11-30 11:51 | XMS_ITS | Clinical Summary ---
Author Organization [employer] Address [address] [facility] [address] [place] [address] Care Team Providers Care Doorperson Name Role Phone Unavailable Primary Care Provider Unavailabl e Immunizations Immunization Administration Dates Next Due Influenza Quadrivalent Adjuvanted 02/13/2021 Influenza injectable quadriv alent IIV4 with preservative 02/19/2019,02/21/2016 Influenza, High Dose Seasonal, Preservative Free 01/25/2022 Influenza, IIV3, injectable 02/22/2014, 0 Influenza, Split (incl. purified surface antigen ) 04/14/2013,02/03/2012 Influenza, trivalent, adjuvanted 03/01/2018 Pneumococcal Conjugate PCV 13 03/01/2018, 017 Pneumococcal Polysaccharide PPSV23 01/25/2022, TD (adult), 2 Lf tetanus tox oid, preservative free, adsorbed 10/19/1999 Tdap 04/14/2013 Zoster, Recombinant 08/06/2022 Zoster, live 08/14/2016 Social History Tobacco Use Types Packs/Day Years Used Date Smoking Tobacco: Never Assessed Comments Unknown Sex and Gender Information Value Date Recorded Sex Assigned at Female 03/11/2022 10:14 AM EDT Legal Sex Female 10:14 AM EDT Gender Identity Female 03/11/2022 10:14 AM EDT Sexual Orientation Straight 03/11/2022 10 :14 AM EDT Last Filed Vital Signs Vital Sign Reading Time Taken Comments Blood Pressure 150/80 05/25/2019 12:01 AM EST Pulse 102 05/25/2019 12:01 AM EST Temperature - - Respiratory Rate - - Oxygen Saturation - - Inhaled Oxygen Concentration - - Weight 84.5 kg (186 lb 3.2 oz) 05/25/2019 12:01 AM EST Height 165.5 cm (5' 5.16 ) 05/25/2019 12:[address] Body Mass Index 30.84 05/25/2019 12:01 AM EST Plan of Treatment Health Maintenance Due Date Last Done Comments Depression Screening 1945 SDOH Screening 1945 Alcohol/Substance Use Screening 1958 Tobacco Screening 1958 Hepatitis C Screening 01/12[birth year]1964 Hepatitis A Vaccines (1 of 2 - Risk 2-dose series) 1965 Hepatitis B Vaccines (1 of 3 - Risk 3-dose series) 2006 Zoster Vaccines (3 of 3) 10/01/2022 08/06/2022, 09/2016 COVID-19 Vaccine (3 - season) 2024 06/22/2021, 09/14/2020 Influenza Vaccine (#1) 2025 , 04/09/2023, 01/25/2022, Additional history exists DTaP/Tdap/Td Vaccines (3 - Td or Tdap) 10/29/2033 10/30/2023, 04/14/2013, 10/19/1999 Pneumococcal Vaccine: 50+ Years Completed 01/25/2022, 03/01/2018, 08/14/2016, Additional history exists RSV Patients and Patients Aged 60 years or older Completed 04/09/2023 HIB Vaccines Aged Out No longer eligi ble based on patient's age to complete this topic HPV Vaccines Aged Out No longer eligi ble based on patient's age to complete this topic IPV Vaccines Aged Out No longer eligi ble based on patient's age to complete this topic Meningococcal B Vaccine Aged Out No l onger eligible based on patient's age to complete this topic Meningococcal Vaccine Aged Out No patricia jeremiah eligible based on patient's age to complete this topic RSV under 20 months Aged Out No longe r eligible based on patient's age to complete this topic Rotavirus Vaccines Aged Out No longer eligible based on patient's age to complete this topic Insurance [address] [place] [id number] [place], [place] [address] STANDARD MEDICARE
--- OUTSIDE RECORDS SUMMARY | 2024-11-30 11:52 | XMS_ITS | Clinical Summary ---
Author Organization [facility] Address [address] [place] [address] Phone Care Team Providers Care [employer] Project Manager Name Role Phone Nicol Higginbotham MD Primary Care Provider [phone] Allergies Active Allergy Reactions Criticality Noted Date Comments Atorvastatin 01/19/2020 Anxiety Bryant Flavor Itching 02/16/2020 Itchy throat Simvastatin Nausea And Vomiting 03/28/2024 Medications blood-glucose meter kit USE DIRECTED TO TEST BLOOD SUGAR EVERY DAY Active famotidine (PEPCID) 20 mg tablet Take 1 tablet (20 mg total) by mouth 2 (two) times a day. Active fluticasone propionate (FLONASE) 50 mcg/actuation nasal spray Administer 2 sprays into each nostril 1 (one) time each day. Active gabapentin (NEURONTIN) 100 mg capsule Take 1 capsule (100 mg total) by mouth at bedtime. at bedtime 03/03/20 24 Active albuterol 2.5 mg /3 mL (0.083 %) nebulizer solutionIndicatio ns:Moderate persistent asthma, uncomplicated,Chr onic obstructive pulmonary disease with (acute) exacerbation (CMS/HCC V24, CMS/HCC V28) USE 1 AMPULE USING A NEBULIZER EVERY 4 HOURS NEEDED FOR COUGH, WHEEZING, OR SHORTNESS OF BREATH 300 mL 5 05/31/19 25 Active rosuvastatin (CRESTOR) 10 mg tablet TAKE 1 TABLET BY MOUTH DAILy AT BEDTIME 30 tablet 5 07/22/19 25 Active metFORMIN XR (GLUCOPHAGE-XR) 500 mg 24 hr tablet TAKE 1 TABLET TWICE DAILY WITH FOOD 180 tablet 3 07/22/19 25 Active montelukast (SINGULAIR) 10 mg tabletIndications :Non-seasonal allergic rhinitis due to other allergic trigger Take 1 tablet (10 mg total) by mouth at bedtime. at bedtime. 90 tablet 3 09/08/19 25 Active fluticasone furoate-vilantero L (Breo Ellipta) 200-25 mcg/dose inhalerIndication s:Chronic obstructive pulmonary disease, unspecified COPD type (CMS/[facility] V24, CMS/[facility] V28),Non-seasonal allergic rhinitis due to other allergic trigger Inhale 1 puff by mouth 1 (one) time each day. 180 each 09/08/19 25 026 Active albuterol HFA (Ventolin HFA) 90 mcg/actuation inhalerIndication s:Chronic obstructive pulmonary disease, unspecified COPD type (CMS/[facility] V24, CMS/[facility] V28) Inhale 2 puffs by mouth every 6 (six) hours if needed for wheezing. 54 g 09/08/19 25 026 Active cetirizine (ZyrTEC) 10 mg tabletIndications :Chronic obstructive pulmonary disease, unspecified COPD type (CMS/HCC V24, CMS/[facility] V28),Non-seasonal allergic rhinitis due to other allergic trigger Take 1 tablet (10 mg total) by mouth 1 (one) time each day. 90 each 09/08/19 25 026 Active blood sugar diagnostic (FreeStyle Lite Strips) test stripIndications: DM (diabetes mellitus), type 2 with peripheral vascular complications (CMS/[facility] V24, CMS/[facility] V28) Check blood sugars once a day E11.9 100 each 09/28/19 25 Active freestyle 28 gauge lancets Check blood sugar once a day or as directed E11.9 100 each 09/28/19 25 026 Active glipiZIDE (GLUCOTROL) 5 mg tabletIndications :Type 2 diabetes mellitus without complications (CMS/[facility] V24, CMS/[facility] V28) TAKE 1 TABLET BY MOUTH TWICE DAILY BEFORE BREAKFAST AND BEFORE SUPPER 60 tablet 5 11/25/19 25 Active umeclidinium (Incruse Ellipta) 62.5 mcg/actuation inhalationIndicat ions:Chronic obstructive pulmonary disease, unspecified COPD type ([facility] V24, CMS/HCC V28) Inhale 1 puff by mouth 1 (one) time each day. 9 each 3 11/26/19 25 026 Active glipiZIDE (GLUCOTROL) 5 mg tabletIndications :Type 2 diabetes mellitus without complications ([facility] V24, [facility] V28) TAKE 1 TABLET BY MOUTH TWICE DAILY BEFORE BREAKFAST AND BEFORE SUPPER 60 tablet 5 05/31/19 25 025 Discontin ued(Reord er) umeclidinium (Incruse Ellipta) 62.5 mcg/actuation inhalationIndicat ions:Chronic obstructive pulmonary disease, unspecified COPD type ([facility] V24, CMS/[facility] V28) Inhale 1 puff by mouth 1 (one) time each day. 9 each 3 09/08/19 25 025 Discontin ued(Reord er) Active Problems Problem Noted Date Diagnosed Date Onychomycosis 06/08/2024 Assessment & Plan (06/08/2024 11:07 AM EST): Orders: Ambulatory referral to Podiatry; Future Calcification of abdominal aorta ([facility] V24) 1 Overview (03/28/2024): On lumbar xrays 02/2020 Aortic valve stenosis 01/19/2020 Overview (09/06/2024): 11/2017 Echo mild, 09/03 mod-severe stenosis Assessment & Plan (06/08/2024 11:07 AM EST): Orders: Transthoracic echocardiogram (TTE) complete with PRN contrast, bubble, strain, and 3D order panel; Future GERD (gastroesophageal reflux disease) 0 Assessment & Plan (06/08/2024 11:07 AM EST): Hepatic steatosis 01/19/2020 Nephrolithiasis 01/19/2020 Umbilical hernia 01/19/2020 Overview (03/28/2024): 2015 CT, Small fat containig Varicose veins of bilateral lower extremities wi th pain 01/19/2020 Anxiety 12/02/2019 COPD (chronic obstructive pu lmonary disease) ([facility] V24, [facility] V28) 12/02/2019 Assessment & Plan (06/08/2024 11:07 AM EST): Allergic rhinitis 07/08/2008 DM (diabetes mellitus), type 2 with peripheral vascular complications ([facility] V24, [facility] V28) 07/08/2008 Assessment & Plan (06/08/2024 11:07 AM EST): Orders: Comprehensive metabolic panel; Future Hemoglobin A1c; Future Microalbumin creatinine urine ratio; Future Fibromyalgia 07/08/2008 Hyperlipidemia 07/08/2008 Assessment & Plan (06/08/2024 11:07 AM EST): Orders: Lipid panel with reflex to direct LDL; Future Osteoarthritis 07/08/2008 Overview (03/28/2024): L knee- TKR offered- pt declined Resolved Problems Problem Noted Date Diagnosed Date Resolved Date Type 2 diabetes mellitus wit hout complications ([facility] V24, [facility] V28) 07/21/2020 09/09/2024 Overview (09/06/2024): Type 2 diabetes mellitus without complications; Note: Date Diagnosed: 07/21/2020 12:12 PM (E11.9) Encounters Date Type Department Care Team Description 10/26/2024 11:00 AM EDT Office Visit Orthopedic Surgery - [facility] [address] [place] [phone] Jefferson Curry PA Pain in finger of right hand (Primary Dx); Arthritis of carpometacarpal (CMC) joint of right thumb; Acute paronychia of right thumb 10/21/2024 11:00 AM EDT Office Visit Endocrinology [address] [phone] Augusto Varghese MD DM (diabetes mellitus), type 2 with peripheral vascular complications (CMS/HCC V24, CMS/HCC V28) (Primary Dx) 09/23/2024 2:00 PM EDT Office Visit Orthopedic Surgery [facility] [address] [phone] Spencer Guevara DPM Acquired hallux valgus of left foot (Primary Dx); Follow-up exam; Pain of right thumb; Acquired hammer toe of right foot; Hammer toe of left foot; Acquired hallux valgus of right foot; Ulcer of toe of left foot, limited to breakdown of skin (CMS/[facility] V24, CMS/HCC V28) 09/09/2024 12:45 PM EDT Office Visit [address] [phone] Nicol Higginbotham MD Nonrheumatic aortic valve stenosis (Primary Dx); DM (diabetes mellitus), type 2 with peripheral vascular complications (CMS/HCC V24, CMS/HCC V28); Pulmonary emphysema, unspecified emphysema type ([facility] V24, CMS/[facility] V28); Other hyperlipidemia 09/08/[address] [phone] Nicol Higginbotham MD Results 09/07/2024 10:30 AM EDT Office Visit Pulmonolgy [facility] 175 [facility] [address] [place] [phone] Ольга Lee NP Chronic obstructive pulmonary disease, unspecified COPD type ([facility] V24, CMS/[facility] V28); Non-seasonal allergic rhinitis due to other allergic trigger 09/02/2024 2:15 PM EDT Office Visit Orthopedic Surgery [facility] [address] [phone] Spencer Guevara DPM Acquired hallux valgus of left foot (Primary Dx); Ulcer of toe of left foot, with fat layer exposed (CMS/[facility] V24, CMS/[facility] V28); Acquired hammer toe of right foot; Hammer toe of left foot; Acquired hallux valgus of right foot; Diabetic mononeuropathy simplex ([facility] V24, [facility] V28); Type II diabetes mellitus with peripheral circulatory disorder ([facility] V24, [facility] V28); Ulcer of toe of right foot, limited to breakdown of skin ([facility] V24, [facility] V28) from Last 3 Months Immunizations Name Administration Dates Next Due Influenza Quadravalent, 0.5ml (Fluad) 65yo and o lder 04/09/2023,02/13/2021 Influenza Quadrivalent, with preservative (Fluzone; Afluria) 6mo and older 02/19/2019,02/21/2016 Influenza Split 04/14/2013,02/03/2012 Influenza trivalent, 0.5mL (Fluad) 65yo and olde r 01/18/2024,03/01/2018 Influenza trivalent, 0.5mL ( Fluzone High-dose) 65yo and older 01/25/2022 Influenza trivalent, with pr eservative (Fluzone; Afluria) 6mo and older 02/22/2014,02/01/2010 Pneumococcal conjugate 13 va lent (Prevnar 13, PCV13) 2mo and older 03/01/2018,08/14/2016 Pneumococcal polysaccharide 23 valent (Pneumovax 23) 2yo and older 01/25/2022,11/04/2007 RSV, bivalent, protein subun it RSVpreF, 0.5mL, Preservative Free (Arexvy) 60yo and older 04/09/2023 Respiratory syncytial virus (RSV), unspecified 1 06/09/2022 Td Tetanus diptheria (Tdvax) 7yo and older 10/29,10/19/1999 Tdap Tetanus diptheria acell ular pertussis (Boostrix; Adacel) 7yo and older 04/14/2013 Zoster Live 08/14/2016 Zoster recombinant (Shingrix) 19yo and older Surgical History Surgery Date Site/Laterality Comments CHOLECYSTECTOMY at 46 years old HYSTERECTOMY ESOPHAGOGASTRODUODENOSCOPY 08/11/08 Esophagus Nl, bile in stomach, gastritis at body-bx:chronic gastritis with intestinal metaplasia (no HPyori), normal duodenum bulb APPENDECTOMY COLONOSCOPY 10/22/06 Up to cecum, poor preparation, normal. Repeat 2011 UPPER GASTROINTESTINAL ENDOSCOPY 08/22/2011 gastritis BREAST BIOPSY Left approx 10 yrs ago Medical History Medical History Date Comments Anxiety 12/02/2019 Hyperlipidemia 07/08/2008 Fibromyalgia 07/08/2008 DX:Fibromyalgia Aortic valve stenosis 01/19/2020 2018 Echo mild Umbilical hernia 01/19/2020 : 2015 CT, Smal l fat containig Hepatic steatosis 01/19/2020 COPD (chronic obstructive pu lmonary disease) ([facility] V24, [facility] V28) 12/02/2019 Allergic rhinitis 07/08/2008 Varicose veins of bilateral lower extremities with pain 01/19/2020 Osteoarthritis 07/08/2008 L knee- TKR offe red- pt declined GERD (gastroesophageal reflux disease) 0 Asthma Family History Medical History Relation Name Comments Asthma Daughter Asthma Paternal Grandmother Breast cancer Neg Hx Relation Name Status Comments Daughter Alive Paternal Grandmother Social History Tobacco Use Types Packs/Day Years Used Date Smoking Tobacco: Never Smokeless Tobacco: Never Tobacco Cessation:Counseling Given: Not Answered Alcohol Use Standard Drinks/Week Comments No 0 (1 standard drink = 0.6 oz pur e alcohol) Comments No Sex and Gender Information Value Date Recorded Sex Assigned at Not on file Legal Sex Female 11:23 PM EST Gender Identity Not on file Sexual Orientation Not on file Obstetrics History Last Filed Vital Signs Vital Sign Reading Time Taken Comments Blood Pressure 112/80 10/21/2024 11:02 AM EDT C Pulse 89 10/21/2024 11:02 AM EDT Temperature 36.5 C (97.7 F) 10/21/2024 11:02 AM EDT Respiratory Rate 16 09/09/2024 12:23 PM EDT Oxygen Saturation 97% 10/21/2024 11:02 AM EDT Inhaled Oxygen Concentration - - Weight 76.7 kg (169 lb) 10/26/2024 11:00 AM EDT Height 165.1 cm (5' 5 ) 10/26/2024 11:00 AM EDT Body Mass Index 28.12 10/26/2024 11:00 AM EDT Plan of Treatment Upcoming Encounters Date Type Department Care Team (Late st Contact Info) Description 12/29/2024 1:00 PM EDT Office Visit Orthopedic Surgery [facility] 250 175 [facility] [address] [place] [phone] Spencer Guevara, DPM 175 [facility] [address] [place] [address] 03/10/2025 11:00 AM EDT Office Visit Pulmonolgy - [facility] 175 [facility] [address] [place] [phone] Ольга Lee, SAY 175 [facility] [address] [place] [address] 03/14/2025 1:00 PM EST Office Visit [facility] Medicine [place] [address] [phone] Vicki Cárdenas PA [address] [place] [phone] 04/29/2025 2:00 PM EST Office Visit Endocrinology [address] [phone] Michelle Cortes PA [address] [place] [phone] Health Maintenance Due Date Last Done Comments Diabetes: Annual Foot Exam 01/12/1956 Diabetes: Annual Retina Eye Exam 01/12/1956 Cervical Cancer Screening: HPV 1967 Colorectal Cancer Screening: Colonoscopy 04/20/2022 Hepatitis C Screening 04/20/2022 Social Influencers of Health Screening 04/20/2022 Zoster Vaccines (3 of 3) 10/01/2022 08/06/2022, 0409/2016 COVID-19 Vaccine ( season) 2024 01/18/2024, 06/22/2021, 09/14/2020 Influenza Vaccine (#1) 2025 , 04/09/2023, 01/25/2022, Additional history exists Diabetes: Blood Sugar Control Test (HGBA1C) 04/13/2025 10/12/2024, 06/08/2024, 09/24/2023, Additional history exists Diabetes: Annual Urine Albumin-Creatinine Ratio (uACR) 06/08/2025 06/08/2024, 12/04/2022 Diabetes: Annual GFR (Glomerular Filtration Rate) 06/08/2025 06/08/2024, 06/21/2022 Falls Risk Assessment 06/08/2025 06/08/2024, 024 Medicare Annual Wellness Visit 06/08/2025 06/08/2024 Cholesterol Screening (Lipid Panel) 06/08/2029 06/08/2024, 09/24/2023, 09/24/2023 Osteoporosis Screening (Bone Density Screening) 01/18/2032 01/17/2022 DTaP,Tdap,and Td Vaccines (4 - Td or Tdap) 10/29/2033 10/30/2023, 04/14/2013, 10/19/1999 Pneumococcal Vaccine: 50+ Years Completed 01/25/2022, 03/01/2018, 08/14/2016, Additional history exists RSV Immunization Adult Patients Completed 04/09/2023, 04/09/2023 RSV Immunization Patients Under 20 months Aged Out 04/09/2023 No longer eligible based on patient's age to complete this topic Depression Screening Completed 09/08/2024 HIB Vaccines Aged Out No longer eligi ble based on patient's age to complete this topic HPV Vaccines Aged Out No longer eligi ble based on patient's age to complete this topic Hepatitis A Vaccines Aged Out No long er eligible based on patient's age to complete this topic Hepatitis B Vaccines Aged Out No long er eligible based on patient's age to complete this topic IPV Vaccines Aged Out No longer eligi ble based on patient's age to complete this topic MMR Vaccines Aged Out No longer eligi ble based on patient's age to complete this topic Meningococcal ACWY Vaccine Aged Out N o longer eligible based on patient's age to complete this topic Meningococcal B Vaccine Aged Out No l onger eligible based on patient's age to complete this topic Varicella Vaccines Aged Out No longer eligible based on patient's age to complete this topic Procedures Procedure Name Priority Date/Time Associated Diagnosis Comments HEMOGLOBIN A1C Routine 10/12/2024 12:33 PM EDT DM (diabetes mellitus), type 2 with peripheral vascular complications (CMS/HCC V24, CMS/[facility] V28) XR FOOT 3+ VIEWS BILAT Routine 09/23/2024 2:16 PM EDT Follow-up exam MICROALBUMIN CREATININE URINE RATIO Routine 06/08/2024 10:57 AM EST DM (diabetes mellitus), type 2 with peripheral vascular complications (CMS/HCC V24, CMS/HCC V28) COMPREHENSIVE METABOLIC PANEL Routine 06/08/2024 10:57 AM EST DM (diabetes mellitus), type 2 with peripheral vascular complications (CMS/HCC V24, CMS/HCC V28) LIPID PANEL WITH REFLEX TO DIRECT LDL Routine 06/08/2024 10:57 AM EST Other hyperlipidemia FALLS RISK ASSESSMENT Routine 07/25/2023 DXA BONE DENSITY STUDY 1+ SITS AXIAL SKEL Routine 01/17/2022 2:32 PM EDT Asymptomatic menopausal state from Last 3 Months or Most Recently Relevant to Health Maintenance Results * (ABNORMAL) Hemoglobin A1c (10/12/2024 12:33 PM EDT) Hemoglobin A1C 7.3(H) <6.5 % LAB CHEMISTRY METHOD 10/12/2024 9:41 PM EDT [facility] Mean Bld Glu Estim. 163 mg/dL LAB CHEMISTRY METHOD 10/12/2024 9:41 PM EDT [facility] Blood Venous blood specimen / Unknown Venipuncture / Unknown 10/12/2024 12:33 PM EDT 10/12/2024 12:33 PM EDT us Michelle PATRICIA LAB BLOOD ORDERABLES Final Resul t [facility] [address] [place] [address], [place] [phone] * XR Foot 3+ Views bilat (09/23/2024 2:16 PM EDT) Anatomical Region Laterality Modality Lower Extremities, Foot Bilateral Computed Radiography Narrative 09/23/2024 6:55 PM EDT Nonweightbearing films both feet Right foot 3 views Moderate severe bunion deformity mild arthritis both feet hammertoe contracture left foot 3 views Moderate severe bunion deformity mild arthritis both feet hammertoe contracture Spencer Guevara DPM IMG XR PROCEDURES Final R esult * (ABNORMAL) Lipid panel with reflex to direct LDL (06/08/2024 10:57 AM EST) Cholesterol 250(H) 0 - 200 mg/dL LAB CHEMISTRY METHOD 06/08/2024 4:10 PM EST [facility] Triglycerides 233(H) 0 - 150 mg/dL LAB CHEMISTRY METHOD 06/08/2024 4:10 PM EST [facility] HDL 54 >=40 mg/dL LAB CHEMISTRY METHOD 06/08/2024 4:10 PM EST [facility] LDL Calculated 149(H) 0 - 100 mg/dL LAB CHEMISTRY METHOD 06/08/2024 4:[address] [facility] VLDL Cholesterol Chi 46.6 mg/dL LAB CHEMISTRY METHOD 06/08/2024 4:[address] [facility] Non HDL Chol. (LDL+VLDL) 196(H) <145 mg/dL LAB CHEMISTRY METHOD 06/08/2024 4:[address] [facility] Chol/HDL Ratio 4.6(H) 0.0 - 4.4 LAB CHEMISTRY METHOD 06/08/2024 4:[address] [facility] Blood Venous blood specimen / Unknown Venipuncture / Unknown 06/08/2024 10:57 AM EST 06/08/2024 10:57 AM EST iNcol Higginbotham MD LAB BLOOD ORDERABLES Final Resul t Performing Organization Address [facility]/ZIP Co de Phone Number [facility] [address] [place] [address], [place] [phone] * Microalbumin creatinine urine ratio (06/08/2024 10:57 AM EST) Creatinine, Urine 56.0 mg/dL LAB CHEMISTRY METHOD 06/08/2024 1:21 PM EST [facility] Microalb, Ur 12.3 0.0 - 29.0 mg/L LAB CHEMISTRY METHOD 06/08/2024 1:21 PM EST [facility] Microalb/Creat Ratio 22 <30 mg/g creat LAB CHEMISTRY METHOD 06/08/2024 1:21 PM EST [facility] Urine Urine specimen obtained by clean catch procedure / Unknown Non-blood Collection / Unknown 06/08/2024 10:57 AM EST 06/08/2024 10:57 AM EST Nicol Higginbotham MD LAB URINE ORDERABLES Final Resul t Performing Organization Address [facility]/ZIP Co de Phone Number [facility] [address] [place] [address], [place] [phone] * Comprehensive metabolic panel (06/08/2024 10:57 AM EST) Sodium 136 133 - 145 mmol/L LAB CHEMISTRY METHOD 06/08/2024 4:10 PM EST [facility] Potassium 4.6 3.5 - 5.5 mmol/L LAB CHEMISTRY METHOD 06/08/2024 4:10 PM EST [facility] Chloride 101 96 - 110 mmol/L LAB CHEMISTRY METHOD 06/08/2024 4:10 PM EST [facility] CO2 31 21 - 32 mmol/L LAB CHEMISTRY METHOD 06/08/2024 4:[address] [facility] Anion Gap 4 3 - 11 LAB CHEMISTRY METHOD 06/08/2024 4:[address] [facility] Glucose 97 70 - 100 mg/dL LAB CHEMISTRY METHOD 06/08/2024 4:[address] [facility] BUN 25 5 - 25 mg/dL LAB CHEMISTRY METHOD 06/08/2024 4:[address] [facility] Creatinine 0.67 0.50 - 1.10 mg/dL LAB CHEMISTRY METHOD 06/08/2024 4:[address] [facility] eGFR 90 >=60 mL/min/1. 73m2 LAB CHEMISTRY METHOD 06/08/2024 4:[address] [facility] Comment:Calculation based on the Chronic Kidney Disease Epidemiology Collaboration (CKD-EPI) equation refit without adjustment for race. BUN/Creatinine Ratio 37.3 LAB CHEMISTRY METHOD 06/08/2024 4:[address] [facility] Calcium 9.7 8.5 - 10.5 mg/dL LAB CHEMISTRY METHOD 06/08/2024 4:[address] [facility] AST (SGOT) 11 10 - 42 unit/L LAB CHEMISTRY METHOD 06/08/2024 4:[address] [facility] ALT (SGPT) 30 10 - 60 unit/L LAB CHEMISTRY METHOD 06/08/2024 4:[address] [facility] Alkaline Phosphatase 68 42 - 121 unit/L LAB CHEMISTRY METHOD 06/08/2024 4:[address] [facility] Total Protein 7.0 6.0 - 8.0 g/dL LAB CHEMISTRY METHOD 06/08/2024 4:[address] [facility] Albumin 4.0 3.2 - 5.0 g/dL LAB CHEMISTRY METHOD 06/08/2024 4:[address] [facility] Total Bilirubin 0.4 0.0 - 1.4 mg/dL LAB CHEMISTRY METHOD 06/08/2024 4:[address] [facility] Blood Venous blood specimen / Unknown Venipuncture / Unknown 06/08/2024 10:57 AM EST 06/08/2024 10:57 AM EST us Nicol Higginbotham MD LAB BLOOD ORDERABLES Final Resul t [facility] ([facility]) [facility] [address] [place] [address], * Falls Risk Assessment (07/25/2023) [facility] Falls Risk Assessment ABSTRACTED us Historical Provider HEALTH MAINTENANCE Final Result * DXA BONE DENSITY STUDY 1+ SITS AXIAL SKEL (01/17/2022 2:32 PM EDT) Anatomical Region Laterality Modality Bone Densitometr y 03/16/2021 10:5 1 AM EDT Narrative 01/17/2022 5:08 PM EDT BONE DENSITY Lumbar Spine T-score is -0.8 (SD relative to 20-29 y/o adult) Z-score is +1.7 (SD relative to age matched peers) This is normal by criteria defined by the WHO. Left Hip T-score is -0.7 Z-score is +1.2 This is normal by criteria defined by the WHO. Impression: Based on the World Health Organization criteria, Lucia Langston should be classified as having normal bone density. [facility] Department of Internal Medicine recommends using National Osteoporosis Foundation (NOF) guidelines in treatment decisions related to osteoporosis. NOF guidelines suggest considering treatment for postmenopausal women and men aged 50 or older presenting with the following: History of hip or vertebral fracture. T-score less than or equal to -2.5 (DXA) at the femoral neck, total hip, or spine, after appropriate evaluation to exclude secondary causes. Low bone mass (T-score between -1.0 and -2.5 at the femoral neck or spine) AND a 10-year probability of a hip fracture greater than or equal to 3% OR a 10-year probability of a major osteoporosis-related fracture greater than or equal to 20% based on the [place]-adapted WHO algorithm Please note that all treatment decisions require clinical judgment and consideration of individual patient factors, including patient preferences, co-morbidities, previous drug use, risk factors not captured in the FRAX model (e.g., frailty, falls, vitamin D deficiency, increased bone turnover, interval significant decline in bone density) and possible under- or over-estimation of fracture risk by FRAX. Procedure Note Steven Mcallister MD - 04/30/2022 BONE DENSITY Lumbar Spine T-score is -0.8 (SD relative to 20-29 y/o adult) Z-score is +1.7 (SD relative to age matched peers) This is normal by criteria defined by the WHO. Left Hip T-score is -0.7 Z-score is +1.2 This is normal by criteria defined by the WHO. Impression: Based on the World Health Organization criteria, Lucia Langston should beclassified as having normal bone density. [facility] Department of Internal Medicine recommendsusing National [employer] (NOF) guidelines in treatmentdecisions related to osteoporosis. NOF guidelines suggest consideringtreatment for postmenopausal women and men aged 50 or older presentingwith the following: History of hip or vertebral fracture. T-score less than or equal to -2.5 (DXA) at the femoral neck, total hip,or spine, after appropriate evaluation to exclude secondary causes. Low bone mass (T-score between -1.0 and -2.5 at the femoral neck or spine)AND a 10-year probability of a hip fracture greater than or equal to 3% ORa 10-year probability of a major osteoporosis-related fracture greaterthan or equal to 20% based on the [place]-adapted WHO algorithm Please note that all treatment decisions require clinical judgment andconsideration of individual patient factors, including patientpreferences, co-morbidities, previous drug use, risk factors not capturedin the FRAX model (e.g., frailty, falls, vitamin D deficiency, increasedbone turnover, interval significant decline in bone density) and possibleunder- or over-estimation of fracture risk by FRAX. Vicki PATRICIA [employer] DXA PROCEDURES Final Resu lt from Last 3 Months or Most Recently Relevant to Health Maintenance Insurance MEDICARE MEDICAID [place] Care Teams [employer] Relationship Specialty Start Date End Date Nicol Higginbotham MD [address] [place] [id number] PCP - General Internal Medicine 02/13/21
== END 2024-11-30 11:16 | disposition home or self-care (01) ==
LOC: HO.RHE 10:41
PROVIDERS: Visit Provider Student in an Organized Health Care Education/Training Program
DX: M17.0 Bilateral primary osteoarthritis of knee (principal)
CPT/HCPCS: 20610; 99213

== ENCOUNTER → 2024-11-30 10:40 | Outpatient (BNVA) | payer MEDICARE, MEDICAID, SELFPAY | PROVIDERS: Visit Provider Student in an Organized Health Care Education/Training Program | DX: M17.0 Bilateral primary osteoarthritis of knee (principal) | CPT/HCPCS: 20610; 99212; J2003; J3300 ==